=== PATIENT | male | born 1965 | race Caucasian/White ===

== ENCOUNTER → 2018-03-29 19:15 | Emergency (ER) | payer BC ==
[~2018-03-29 19:15] MED LIST: Metoclopramide TAB* 10 MG PO ONE; diPHENhydraMINE PO* 25 MG PO ONE
[2018-03-29 21:51] LABS: Hematocrit 45 % (42-52); Hemoglobin 15.3 g/dl (14.0-18.0); Mean Corpuscular HGB Conc 34 g/dl (31-36); Mean Corpuscular Hemoglobin 34 pg (27-31); Mean Corpuscular Volume 99 fL (80-94); Mean Platelet Volume 7.5 um3 (7.4-10.4); Platelet Count 112 10^3/ul (150-450); Red Blood Count 4.52 10^6/ul (4.00-5.40); Red Cell Distribution Width 15 % (10.5-15); White Blood Count 5.8 10^3/ul (3.5-10.8)
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
[2018-03-29 22:06] LABS: EGFR Non-African American 106.1 (>60)
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
[2018-03-29 22:43] LABS: ABS Basophils 0.1 10^3/ul (0-0.2); ABS Neutrophils 1.5 10^3/ul (1.5-7.7); ABS Neutrophils 1.6 10^3/ul (1.5-7.7); Monocytes % 6 % (0-7)
[2018-03-29 23:09] VITALS: BP 154/74
== END | disposition home or self-care (01) ==
LOC: ED 19:15
DX: F07.81 Postconcussional syndrome (principal); M54.2 Cervicalgia; Z88.0 Allergy status to penicillin
CPT/HCPCS: 36415; 70450; 80053; 85025; 99282; A9270-GY

== ENCOUNTER 2018-04-24 19:43 | Emergency (ER) | payer BC ==
[2018-04-24 20:56] LABS: ABS Basophils 0.1 10^3/ul (0-0.2); ABS Eosinophils 0.1 10^3/ul (0-0.6); ABS Lymphocytes 2.6 10^3/ul (1.0-4.8); ABS Monocytes 0.6 10^3/ul (0-0.8); ABS Neutrophils 2.1 10^3/ul (1.5-7.7); ABS Nucleated RBC 0 10^3/ul; Eosinophil % 2.5 %; Hematocrit 45 % (42-52); Hemoglobin 15.4 g/dl (14.0-18.0); Lymphocyte % 46.6 %; Mean Corpuscular HGB Conc 34 g/dl (31-36); Mean Corpuscular Hemoglobin 34 pg (27-31); Mean Corpuscular Volume 100 fL (80-94); Mean Platelet Volume 7.6 fL (7.4-10.4); Nucleated Red Blood Cells % 0.1; Platelet Count 272 10^3/ul (150-450); Red Blood Count 4.51 10^6/ul (4.00-5.40); Red Cell Distribution Width 15 % (10.5-15); White Blood Count 5.6 10^3/ul (3.5-10.8)
[2018-04-24 21:10] LABS: EGFR Non-African American 112.8 (>60)
--- NOTE | 2018-04-24 22:49 | ED ---
Substance Abuse/Use - HPI Summary HPI Summary: A 52 y/o male accompanied by his presents to the ED c/o alcohol intoxication s/p LOC. As per triage, "Patient was found on floor by this evening. reports increased confusion and weakness. also reports alcohol abuse and hx hypoglycemia". According to the , she came home and found the patient passed out on the floor. She denies any injury and did not see one. The patient admitted to drinking "a little" ETOH today. Patient has had similar episodes before. His noted that there were other periods where the patient gets confused and has trouble walking. - History Of Current Complaint Chief Complaint: EDAltMentalStatus Stated Complaint: CONFUSED/LOW SUGAR Time Seen by Provider: 04/24/18 22:19 Hx Obtained From: Patient Onset/Duration of Drug/ETOH Abuse: Hours Ingestion History: Type/Name Of Drug - ETOH, Amount Ingested - UNKNOWN Overdose Characteristics: Oral Timing Of Abuse: Binge Use Severity Currently: None Aggravating Factor(s): Nothing Alleviating Factor(s): Nothing Associated Signs And Symptoms: Negative - Allergies/Home Medications Allergies/Adverse Reactions: Allergies Allergy/AdvReac Type Severity Reaction Status Date / Time Penicillins Allergy Rash Verified 03/29/18 19:27 PMH/Surg Hx/FS Hx/Imm Hx Endocrine/Hematology History: Reports: Other Endocrine/Hematological Disorders - Hypoglycemia Cardiovascular History: Reports: Hx Hypertension Sensory History: Denies: Hx Deafness Neurological History: Reports: Other Neuro Impairments/Disorders - Concussion - Cancer History Cancer Type, Location and Year: None reported - Surgical History Surgery Procedure, Year, and Place: None reported Infectious Disease History: No Infectious Disease History: Denies: Traveled Outside the [place] in Last 30 Days - Family History Known Family History: Positive: Cardiac Disease - Social History Alcohol Use: Daily Alcohol Amount: States in treatment, but most recently drank today mornig Substance Use Type: Reports: None Hx Tobacco Use: No Smoking Status (MU): Never Smoked Tobacco Review of Systems Negative: Fever Neurological: Other - POSITIVE: LOC Positive: Weakness All Other Systems Reviewed And Are Negative: Yes Physical Exam - Summary Physical Exam Summary: Appearance: Well-appearing, Well-nourished, lying in bed comfortably Skin: Warm, dry, no obvious rash Eyes: sclera anicteric, no conjunctival pallor ENT: mucous membranes moist, pharynx appears normal Neck: Supple, nontender Respiratory: Clear to auscultation, no signs of respiratory distress Cardiovascular: Normal S1, S2. No murmurs. Normal distal pulses in tibial and radial bilaterally. Abdomen: Soft, nontender, normal active bowel sounds present Musculoskeletal: Normal, Strength/ROM Intact, Motor function in all 4 extremities is normal and symmetric. There is no rigidity or tremor noted. Neurological: A&Ox3, awake and alert, mentation is normal, speech is fluent and appropriate, Level of consciousness nml. The patient is alert and oriented. Cranial nerves are grossly intact. Gaze is conjugate and without nystagmus. Peripheral vision is intact to confrontation. There are no gross sensory abnormalities to light touch. There is no truncal or fine motor ataxia. Gait is normal. Psychiatric: affect is normal, does not appear anxious or depressed GCS: 15 Triage Information Reviewed: Yes Vital Signs On Initial Exam: Initial Vitals Temp Pulse Resp BP Pulse Ox 97.7 F 80 16 121/90 97 04/24/18 19:54 04/24/18 19:54 04/24/18 19:54 04/24/18 19:54 04/24/18 19:54 Vital Signs Reviewed: Yes Diagnostics - Vital Signs Vital Signs Temp Pulse Resp BP Pulse Ox 04/24/18 22:21 14 130/82 04/24/18 19:54 97.7 F 80 16 121/90 97 - Laboratory Lab Results: Lab Results 04/24/18 04/24/18 04/24/18 Range/Units 20:47 20:47 20:47 WBC 5.6 (3.5-10.8) 10^3/ul RBC 4.51 (4.00-5.40) 10^6/ul Hgb 15.4 (14.0-18.0) g/dl Hct 45 (42-52) % MCV 100 H (80-94) fL MCH 34 H (27-31) pg MCHC 34 (31-36) g/dl RDW 15 (10.5-15) % Plt Count 272 (150-450) 10^3/ul MPV 7.6 (7.4-10.4) fL Neut % (Auto) 38.3 % Lymph % (Auto) 46.6 % Scott % (Auto) 11.0 % Eos % (Auto) 2.5 % Baso % (Auto) 1.6 % Absolute Neuts (auto) 2.1 (1.5-7.7) 10^3/ul Absolute Lymphs (auto) 2.6 (1.0-4.8) 10^3/ul Absolute Monos (auto) 0.6 (0-0.8) 10^3/ul Absolute Eos (auto) 0.1 (0-0.6) 10^3/ul Absolute Basos (auto) 0.1 (0-0.2) 10^3/ul Absolute Nucleated RBC 0 10^3/ul Nucleated RBC % 0.1 Sodium 142 (135-145) mmol/L Potassium 4.6 (3.5-5.0) mmol/L Chloride 108 (101-111) mmol/L Carbon Dioxide 29 (22-32) mmol/L Anion Gap 5 (2-11) mmol/L BUN 8 (6-24) mg/dL Creatinine 0.73 (0.67-1.17) mg/dL Est GFR ( Amer) 136.5 (>60) Est GFR (Non-Af Amer) 112.8 (>60) BUN/Creatinine Ratio 11.0 (8-20) Glucose 122 H (70-100) mg/dL Lactic Acid 1.8 (0.5-2.0) mmol/L Calcium 9.1 (8.6-10.3) mg/dL Total Bilirubin 0.30 (0.2-1.0) mg/dL AST 73 H (13-39) U/L ALT 67 H (7-52) U/L Alkaline Phosphatase 49 (34-104) U/L Ammonia (16-53) mcmol/L Troponin I 0.00 (<0.04) ng/mL Total Protein 7.2 (6.4-8.9) g/dL Albumin 4.5 (3.2-5.2) g/dL Globulin 2.7 (2-4) g/dL Albumin/Globulin Ratio 1.7 (1-3) TSH 0.59 (0.34-5.60) mcIU/mL Serum Alcohol 373 H (<10) mg/dL 04/24/ Range/Units 20:47 WBC (3.5-10.8) 10^3/ul RBC (4.00-5.40) 10^6/ul Hgb (14.0-18.0) g/dl Hct (42-52) % MCV (80-94) fL MCH (27-31) pg MCHC (31-36) g/dl RDW (10.5-15) % Plt Count (150-450) 10^3/ul MPV (7.4-10.4) fL Neut % (Auto) % Lymph % (Auto) % Scott % (Auto) % Eos % (Auto) % Baso % (Auto) % Absolute Neuts (auto) (1.5-7.7) 10^3/ul Absolute Lymphs (auto) (1.0-4.8) 10^3/ul Absolute Monos (auto) (0-0.8) 10^3/ul Absolute Eos (auto) (0-0.6) 10^3/ul Absolute Basos (auto) (0-0.2) 10^3/ul Absolute Nucleated RBC 10^3/ul Nucleated RBC % Sodium (135-145) mmol/L Potassium (3.5-5.0) mmol/L Chloride (101-111) mmol/L Carbon Dioxide (22-32) mmol/L Anion Gap (2-11) mmol/L BUN (6-24) mg/dL Creatinine (0.67-1.17) mg/dL Est GFR ( Amer) (>60) Est GFR (Non-Af Amer) (>60) BUN/Creatinine Ratio (8-20) Glucose (70-100) mg/dL Lactic Acid (0.5-2.0) mmol/L Calcium (8.6-10.3) mg/dL Total Bilirubin (0.2-1.0) mg/dL AST (13-39) U/L ALT (7-52) U/L Alkaline Phosphatase (34-104) U/L Ammonia 37 (16-53) mcmol/L Troponin I (<0.04) ng/mL Total Protein (6.4-8.9) g/dL Albumin (3.2-5.2) g/dL Globulin (2-4) g/dL Albumin/Globulin Ratio (1-3) TSH (0.34-5.60) mcIU/mL Serum Alcohol (<10) mg/dL Result Diagrams: 04/24/18 20:47 04/24/18 20:47 Lab Statement: Any lab studies that have been ordered have been reviewed, and results considered in the medical decision making process. - CT BRAIN CT CT Interpretation Completed By: Radiologist - Normal noncontrast head CT. ED PHYSICIAN REVIEWED THIS RADIOLOGY REPORT. - EKG 2221 Cardiac Rate: NL - 68 BPM EKG Rhythm: Sinus Rhythm - 68 BPM Summary of EKG Findings: NSR at 68 BPM, P waves, QRS complex, and T waves are within normal limits, T waves and intervals are normal, no ischemic changes. This is a normal EKG Course/Dx - Course Course Of Treatment: A 52 y/o male accompanied by his presents to the ED c/ o alcohol intoxication s/p LOC. As per triage, "Patient was found on floor by this evening. reports increased confusion and weakness. also reports alcohol abuse and hx hypoglycemia". According to the , she came home and found the patient passed out on the floor. She denies any injury and did not see one. The patient admitted to drinking "a little" ETOH today. Patient has had similar episodes before. His noted that there were other periods where the patient gets confused and has trouble walking. Physical exam was unremarkable. An EKG revealed NSR at 68 BPM, P waves, QRS complex, and T waves are within normal limits, T waves and intervals are normal, no ischemic changes. This is a normal EKG. A Brain CT revealed normal noncontrast head CT. GCS: 15. Blood work was done. In the ED course, the patient recieved no medications. Patient will be discharged with a diagnosis of alcohol intoxication. Patient is to follow up with PCP and drug counseling. Patient is agreeable with this plan. - Diagnoses Provider Diagnoses: Alcohol intoxication Discharge - Sign-Out/Discharge Documenting (check all that apply): Patient Departure - DISCHARGE - Discharge Plan Condition: Good Disposition: HOME Patient Education Materials: Effects of Smoking, Alcohol, and Medicines on (ED), Alcohol Withdrawal (ED), Alcohol Dependence (ED) Referrals: Raghu Sinclair MD [Primary Care Provider] - Additional Instructions: Getting help with your alcohol problem is important, both for your health and relationships. If you have had problems like seizures or delirium when you try to stop drinking, you will probably be best off checking into a monitored detox program where you can be medicated to prevent severe withdrawal. YOU CANNOT SOLVE THIS PROBLEM BY YOURSELF, YOU WILL NEED HELP. I can't emphasize that enough. It is truly a life or issue. - Billing Disposition and Condition Condition: GOOD Disposition: Home - Attestation Statements Document Initiated by Derian: Yes Documenting Scribe: Ulysses Shelby Provider For Whom Derian is Documenting (Include Credential): Lazaro Ross MD Scribe Attestation: I, Ulysses Shelby, scribed for Lazaro Ross MD on 04/25/18 at 0222. Scribe Documentation Reviewed: Yes Provider Attestation: The documentation as recorded by the Ulysses kenney accurately reflects the service I personally performed and the decisions made by me, Lazaro Ross MD Status of Scrtaniyae Document: Viewed
[2018-04-24 23:30] VITALS: BP 124/82
== END 2018-04-24 23:34 | disposition home or self-care (01) ==
LOC: ED 19:43
DX: F10.129 Alcohol abuse with intoxication, unspecified (principal); Z88.0 Allergy status to penicillin
CPT/HCPCS: 36415; 70450; 80053; 80320; 82140; 83605; 84443; 84484; 85025; 93005; 99282; G0480

== ENCOUNTER 2018-08-20 10:11 | Inpatient (IN) | payer BC ==
[2018-08-20 11:28] LABS: Hematocrit 37 % (36-46); Hemoglobin 12.7 g/dL (14.0-18.0); Mean Corpuscular HGB Conc 34 g/dL (31-36); Mean Corpuscular Hemoglobin 35 pg (27-31); Mean Corpuscular Volume 102 fL (80-94); Red Blood Count 3.67 10^6 /uL (4.18-5.48); Red Cell Distribution Width 14 % (10.5-15); White Blood Count 5.1 10^3/uL (3.5-10.8)
[2018-08-20 11:33] LABS: INR 0.82 (0.77-1.02)
[2018-08-20 11:50] LABS: ALT 75 U/L (7-52); AST 82 U/L (13-39); Albumin 3.8 g/dL (3.2-5.2); Albumin/Globulin Ratio 1.7 (1-3); Alkaline Phosphatase 61 U/L (34-104); Anion Gap 7 mmol/L (2-11); BUN/Creatinine Ratio 8.6 (8-20); Blood Urea Nitrogen 6 mg/dL (6-24); CO2 Carbon Dioxide 26 mmol/L (22-32); Chloride 103 mmol/L (101-111); Creatine Kinase 96 U/L (10-223); EGFR African American 143.3 (>60); EGFR Non-African American 118.4 (>60); Globulin 2.2 g/dL (2-4); Glucose 114 mg/dL (70-100); Magnesium 1.5 mg/dL (1.9-2.7); Potassium 3.2 mmol/L (3.5-5.0); Sodium 136 mmol/L (135-145)
[2018-08-20 12:19] LABS: Acetaminophen < 15 mcg/mL; Alcohol < 10 mg/dL (<10); Salicylate < 2.50 mg/dL (<30)
[2018-08-20] MEDS ORDERED: Thiamine IV* 100 MG, Folic Acid IV* 1 MG, Multiple Vitamin IV ADULT* 10 ML in NS 0.9% 1... IV ONE (12:33)
[2018-08-20 12:35] LABS: ABS Basophils 0 10^3/ul (0-0.2); ABS Eosinophils 0.2 10^3/ul (0-0.6); ABS Lymphocytes 1.5 10^3/ul (1.0-4.8); ABS Monocytes 1.2 10^3/ul (0-0.8); ABS Neutrophils 2.2 10^3/ul (1.5-7.7); ABS Nucleated RBC 0 10^3/ul; Eosinophil % 3.7 %; Lymphocyte % 29.5 %; Mean Platelet Volume 8.8 fL (7.4-10.4); Nucleated Red Blood Cells % 0.1; Platelet Count 82 10^3/uL (150-450)
[2018-08-20 12:41] LABS: Urine Appearance Clear; Urine Bilirubin Negative (Negative); Urine Blood Negative (Negative); Urine Color Yellow; Urine Glucose Negative (Negative); Urine Ketones Negative (Negative); Urine Nitrite Negative (Negative); Urine Protein Negative (Negative); Urine Urobilinogen Negative (Negative)
[2018-08-20] MEDS ORDERED: Thiamine TAB* 100 MG TAB PO ONE (12:52)
[2018-08-20 12:56] LABS: Barbiturates Urine Screen None Detected (None Detect); Benzodiazepine Urine Screen None Detected (None Detect); Urine Cannabinoids Screen None Detected (None Detect)
--- NOTE | 2018-08-20 13:41 | ED ---
Altered Mental Status - HPI Summary HPI Summary: Patient's a 52-year-old male presented to the ED with altered mental status. is at bedside. states over the past 2 weeks, he has been worsening with his altered mental status. He is a heavy drinker and an alcoholic. Patient states he only drank 1 drink last night and then this morning again had some champagne. His states he drinks several drinks last night, but did not not have champagne this morning. Patient states he was at a democrat last night, however the states again this is untrue. He has been hallucinating and stating there are people in the house which are not there. He is also stating he needs to call the police, but is unsure why. When asked the patient , the patient states he is here because he has some left eye redness and offers nothing else. He has been seen in the past for altered mental status and CT brain obtained upon his last 2 visits. He also does have a diagnosis of a remote concussion and has also been treated for postconcussive syndrome. - History Of Current Complaint Chief Complaint: EDAltMentalStatus Stated Complaint: HALLUCINATIONS PER Time Seen by Provider: 08/20/18 10:17 Hx Obtained From: Patient Timing: Constant Severity Initially: Moderate Severity Currently: Moderate Character: Confusion, Lethargy Aggravating Factor(s): Other - alcohol abuse Alleviating Factor(s): Nothing - Allergies/Home Medications Allergies/Adverse Reactions: Allergies Allergy/AdvReac Type Severity Reaction Status Date / Time Penicillins Allergy Rash Verified 08/20/18 10:53 Home Medications: Home Medications Atenolol 50 mg PO DAILY 08/20/18 [History Confirmed 08/20/18] PMH/Surg Hx/FS Hx/Imm Hx Previously Healthy: Yes Endocrine/Hematology History: Reports: Other Endocrine/Hematological Disorders - Hypoglycemia Cardiovascular History: Reports: Hx Hypertension Sensory History: Denies: Hx Deafness Neurological History: Reports: Other Neuro Impairments/Disorders - Concussion - Cancer History Cancer Type, Location and Year: None reported - Surgical History Surgery Procedure, Year, and Place: None reported - Immunization History Hx Pertussis Vaccination: No Immunizations Up to Date: Yes Infectious Disease History: No Infectious Disease History: Denies: Traveled Outside the [place] in Last 30 Days - Family History Known Family History: Positive: Cardiac Disease - Social History Occupation: Unemployed, Disabled Lives: With Family Alcohol Use: Daily Alcohol Amount: daily Hx Substance Use: No Substance Use Type: Reports: None Hx Tobacco Use: No Smoking Status (MU): Never Smoked Tobacco Review of Systems Negative: Fever, Chills, Fatigue Negative: Palpitations, Chest Pain Negative: Shortness Of Breath, Cough Genitourinary: Negative Positive: no symptoms reported, see HPI Negative: Arthralgia, Myalgia Positive: Slurred Speech All Other Systems Reviewed And Are Negative: Yes Physical Exam Triage Information Reviewed: Yes Vital Signs On Initial Exam: Initial Vitals Temp Pulse Resp BP Pulse Ox 97.2 F 77 18 149/97 98 08/20/18 10:22 08/20/18 10:22 08/20/18 10:22 08/20/18 10:22 08/20/18 10:22 Completion Of Physical Exam Limited Due To: Altered Mental Status Appearance: Positive: Ill-Appearing Skin: Positive: Skin Color Reflects Adequate Perfusion Head/Face: Positive: Normal Head/Face Inspection Eyes: Positive: EOMI, Conjunctiva Clear Neck: Positive: No Lymphadenopathy Respiratory/Lung Sounds: Positive: Clear to Auscultation, Breath Sounds Present Cardiovascular: Positive: RRR Musculoskeletal: Positive: Strength/ROM Intact Neurological: Positive: Slurred Speech Psychiatric: Positive: Affect/Mood Appropriate Diagnostics - Vital Signs Vital Signs Temp Pulse Resp BP Pulse Ox 08/20/18 13:00 66 17 100 08/20/18 12:30 82 14 141/111 100 08/20/18 12:00 65 17 97 08/20/18 11:56 65 14 112/77 98 08/20/18 11:52 65 17 114/79 97 08/20/18 11:27 69 116/81 97 08/20/18 11:26 71 97 08/20/18 10:22 97.2 F 77 18 149/97 98 - Laboratory Lab Results: Lab Results 08/20/18 08/20/18 08/20/18 Range/Units 11:19 11:19 11:19 WBC 5.1 (3.5-10.8) 10^3/uL RBC 3.67 L (4.18-5.48) 10^6 /uL Hgb 12.7 L (14.0-18.0) g/dL Hct 37 (36-46) % MCV 102 H (80-94) fL MCH 35 H (27-31) pg MCHC 34 (31-36) g/dL RDW 14 (10.5-15) % Plt Count 82 L (150-450) 10^3/uL MPV 8.8 (7.4-10.4) fL Neut % (Auto) 41.9 % Lymph % (Auto) 29.5 % [place] % (Auto) 24.2 % Eos % (Auto) 3.7 % Baso % (Auto) 0.7 % Absolute Neuts (auto) 2.2 (1.5-7.7) 10^3/ul Absolute Lymphs (auto) 1.5 (1.0-4.8) 10^3/ul Absolute Monos (auto) 1.2 H (0-0.8) 10^3/ul Absolute Eos (auto) 0.2 (0-0.6) 10^3/ul Absolute Basos (auto) 0 (0-0.2) 10^3/ul Absolute Nucleated RBC 0 10^3/ul Nucleated RBC % 0.1 Hem Pathologist Commnt Pending INR (Anticoag Therapy) (0.77-1.02) Sodium 136 (135-145) mmol/L Potassium 3.2 L (3.5-5.0) mmol/L Chloride 103 (101-111) mmol/L Carbon Dioxide 26 (22-32) mmol/L Anion Gap 7 (2-11) mmol/L BUN 6 (6-24) mg/dL Creatinine 0.70 (0.67-1.17) mg/dL Est GFR ( Amer) 143.3 (>60) Est GFR (Non-Af Amer) 118.4 (>60) BUN/Creatinine Ratio 8.6 (8-20) Glucose 114 H (70-100) mg/dL Lactic Acid (0.5-2.0) mmol/L Calcium 9.0 (8.6-10.3) mg/dL Magnesium 1.5 L (1.9-2.7) mg/dL Total Bilirubin 1.00 (0.2-1.0) mg/dL AST 82 H (13-39) U/L ALT 75 H (7-52) U/L Alkaline Phosphatase 61 (34-104) U/L Ammonia 46 (16-53) mcmol/L Total Creatine Kinase 96 (10-223) U/L Troponin I 0.00 (<0.04) ng/mL Total Protein 6.0 L (6.4-8.9) g/dL Albumin 3.8 (3.2-5.2) g/dL Globulin 2.2 (2-4) g/dL Albumin/Globulin Ratio 1.7 (1-3) Folate Pending Urine Color Urine Appearance Urine pH (5-9) Ur Specific [place] (1.010-1.030) Urine Protein (Negative) Urine Ketones (Negative) Urine Blood (Negative) Urine Nitrate (Negative) Urine Bilirubin (Negative) Urine Urobilinogen (Negative) Ur Leukocyte Esterase (Negative) Urine Glucose (Negative) Salicylates < 2.50 (<30) mg/dL Urine Opiates Screen (None Detect) Acetaminophen < 15 mcg/mL Ur Barbiturates Screen (None Detect) Ur Phencyclidine Scrn (None Detect) Ur Amphetamines Screen (None Detect) U Benzodiazepines Scrn (None Detect) Urine Cocaine Screen (None Detect) U Cannabinoids Screen (None Detect) Serum Alcohol < 10 (<10) mg/dL 08/20/18 08/20/18 08/20/18 Range/Units 11:19 11:19 12:29 WBC (3.5-10.8) 10^3/uL RBC (4.18-5.48) 10^6 /uL Hgb (14.0-18.0) g/dL Hct (36-46) % MCV (80-94) fL MCH (27-31) pg MCHC (31-36) g/dL RDW (10.5-15) % Plt Count (150-450) 10^3/uL MPV (7.4-10.4) fL Neut % (Auto) % Lymph % (Auto) % [place] % (Auto) % Eos % (Auto) % Baso % (Auto) % Absolute Neuts (auto) (1.5-7.7) 10^3/ul Absolute Lymphs (auto) (1.0-4.8) 10^3/ul Absolute Monos (auto) (0-0.8) 10^3/ul Absolute Eos (auto) (0-0.6) 10^3/ul Absolute Basos (auto) (0-0.2) 10^3/ul Absolute Nucleated RBC 10^3/ul Nucleated RBC % Hem Pathologist Commnt INR (Anticoag Therapy) 0.82 (0.77-1.02) Sodium (135-145) mmol/L Potassium (3.5-5.0) mmol/L Chloride (101-111) mmol/L Carbon Dioxide (22-32) mmol/L Anion Gap (2-11) mmol/L BUN (6-24) mg/dL Creatinine (0.67-1.17) mg/dL Est GFR ( Amer) (>60) Est GFR (Non-Af Amer) (>60) BUN/Creatinine Ratio (8-20) Glucose (70-100) mg/dL Lactic Acid 0.9 (0.5-2.0) mmol/L Calcium (8.6-10.3) mg/dL Magnesium (1.9-2.7) mg/dL Total Bilirubin (0.2-1.0) mg/dL AST (13-39) U/L ALT (7-52) U/L Alkaline Phosphatase (34-104) U/L Ammonia (16-53) mcmol/L Total Creatine Kinase (10-223) U/L Troponin I (<0.04) ng/mL Total Protein (6.4-8.9) g/dL Albumin (3.2-5.2) g/dL Globulin (2-4) g/dL Albumin/Globulin Ratio (1-3) Folate Urine Color Yellow Urine Appearance Clear Urine pH 7.0 (5-9) Ur Specific [place] 1.010 (1.010-1.030) Urine Protein Negative (Negative) Urine Ketones Negative (Negative) Urine Blood Negative (Negative) Urine Nitrate Negative (Negative) Urine Bilirubin Negative (Negative) Urine Urobilinogen Negative (Negative) Ur Leukocyte Esterase Negative (Negative) Urine Glucose Negative (Negative) Salicylates (<30) mg/dL Urine Opiates Screen (None Detect) Acetaminophen mcg/mL Ur Barbiturates Screen (None Detect) Ur Phencyclidine Scrn (None Detect) Ur Amphetamines Screen (None Detect) U Benzodiazepines Scrn (None Detect) Urine Cocaine Screen (None Detect) U Cannabinoids Screen (None Detect) Serum Alcohol (<10) mg/dL 08/20/18 Range/Units 12:29 WBC (3.5-10.8) 10^3/uL RBC (4.18-5.48) 10^6 /uL Hgb (14.0-18.0) g/dL Hct (36-46) % MCV (80-94) fL MCH (27-31) pg MCHC (31-36) g/dL RDW (10.5-15) % Plt Count (150-450) 10^3/uL MPV (7.4-10.4) fL Neut % (Auto) % Lymph % (Auto) % [place] % (Auto) % Eos % (Auto) % Baso % (Auto) % Absolute Neuts (auto) (1.5-7.7) 10^3/ul Absolute Lymphs (auto) (1.0-4.8) 10^3/ul Absolute Monos (auto) (0-0.8) 10^3/ul Absolute Eos (auto) (0-0.6) 10^3/ul Absolute Basos (auto) (0-0.2) 10^3/ul Absolute Nucleated RBC 10^3/ul Nucleated RBC % Hem Pathologist Commnt INR (Anticoag Therapy) (0.77-1.02) Sodium (135-145) mmol/L Potassium (3.5-5.0) mmol/L Chloride (101-111) mmol/L Carbon Dioxide (22-32) mmol/L Anion Gap (2-11) mmol/L BUN (6-24) mg/dL Creatinine (0.67-1.17) mg/dL Est GFR ( Amer) (>60) Est GFR (Non-Af Amer) (>60) BUN/Creatinine Ratio (8-20) Glucose (70-100) mg/dL Lactic Acid (0.5-2.0) mmol/L Calcium (8.6-10.3) mg/dL Magnesium (1.9-2.7) mg/dL Total Bilirubin (0.2-1.0) mg/dL AST (13-39) U/L ALT (7-52) U/L Alkaline Phosphatase (34-104) U/L Ammonia (16-53) mcmol/L Total Creatine Kinase (10-223) U/L Troponin I (<0.04) ng/mL Total Protein (6.4-8.9) g/dL Albumin (3.2-5.2) g/dL Globulin (2-4) g/dL Albumin/Globulin Ratio (1-3) Folate Urine Color Urine Appearance Urine pH (5-9) Ur Specific [place] (1.010-1.030) Urine Protein (Negative) Urine Ketones (Negative) Urine Blood (Negative) Urine Nitrate (Negative) Urine Bilirubin (Negative) Urine Urobilinogen (Negative) Ur Leukocyte Esterase (Negative) Urine Glucose (Negative) Salicylates (<30) mg/dL Urine Opiates Screen None detected (None Detect) Acetaminophen mcg/mL Ur Barbiturates Screen None detected (None Detect) Ur Phencyclidine Scrn None detected (None Detect) Ur Amphetamines Screen None detected (None Detect) U Benzodiazepines Scrn None detected (None Detect) Urine Cocaine Screen None detected (None Detect) U Cannabinoids Screen None detected (None Detect) Serum Alcohol (<10) mg/dL Result Diagrams: 08/20/18 11:19 08/20/18 11:19 Lab Statement: Any lab studies that have been ordered have been reviewed, and results considered in the medical decision making process. Altered Mental Statu Course/Dx - Course Course Of Treatment: The patient is evaluated for altered mental status. Labs obtained which are all WNL except for a slightly elevated AST and ALT. He is given 1 banana bag with oral thiamine as IV was not available. is concerned and states she is unable to care for him due to his condition. She is also concerned for withdrawals as he has had withdrawal symptoms in the past. Discussed case with Dr. toth, hospitalist who agrees to admit for altered mental status. CT brain obtained which shows suggestion of interval progression of cerebral and cerebellar atrophy compared with April 24, 2018 exam. - Diagnoses Provider Diagnoses: Alcohol abuse, Hallucination, Cerebral atrophy - Provider Notifications Discussed Care Of Patient With: Sahara Pan Instructed by Provider To: Admit As Inpatient Discharge - Sign-Out/Discharge Documenting (check all that apply): Patient Departure Patient Received Moderate/Deep Sedation with Procedure: No - Discharge Plan Condition: Fair Disposition: ADMITTED TO [facility] Referrals: Raghu Sinclair MD [Primary Care Provider] - - Billing Disposition and Condition Condition: FAIR Disposition: Admitted to [facility]
[2018-08-20] MEDS ORDERED: Folic Acid IV* 1 MG, Multiple Vitamin IV ADULT* 10 ML in NS 0.9% 1000 ML** 1,000 ML IV ONE ×4 (14:00)
[2018-08-20 14:03] LABS: Folate > 20.00 ng/mL (>3.99)
[2018-08-20] MEDS ORDERED: Magnesium Hydroxide LIQ* 30 ML UDC PO PRN (14:38)
[2018-08-20] MEDS ORDERED: Al Hydrox/Mg Hydrox/Simet LIQ* 30 ML UDC PO PRN (14:38)
[2018-08-20] MEDS ORDERED: Acetaminophen TAB* 325 MG PO PRN ×2 (14:43→14:56)
[2018-08-20] MEDS ORDERED: Thiamine IV* 100 MG/ML 2 ML VIAL IM ONE (14:56)
[2018-08-20] MEDS ORDERED: Folic Acid TAB* 1 MG PO SCH (15:00)
[2018-08-20] MEDS ORDERED: Thiamine IV* 500 MG in NS 0.9% 250 ML* 250 ML IV ONE (15:16)
[2018-08-20] MEDS: LORazepam TAB(*) 1 MG PO SCH ×2 (16:13→22:45)
[2018-08-20] MEDS: Multivitamins/Minerals TAB PO SCH (17:25)
[2018-08-20] MEDS: KCL 20 MEQ/100 ML IVPREMIX* 20 MEQ/100 ML BAG IV SCH ×3 (17:25→22:03)
--- NOTE | 2018-08-20 17:30 | HP ---
HISTORY AND PHYSICAL: ADDENDUM: EMERGENCY DEPARTMENT COURSE: The patient arrived to the emergency department with vital signs of temperature 97.2, pulse 77, respiratory rate 18, O2 sat 98% on room air, blood pressure 149/97, which was later recorded at 116/81. In the emergency department, the patient received thiamine 100 mg, folic acid 1 mg, multivitamin 10 mL in normal saline. Therefore, the hospitalists were asked to evaluate the patient for admission. MARCY EASLEY [id number]/[facility] #: [id number]
--- NOTE | 2018-08-20 17:30 | HP ---
CC: Dr. Sinclair * HISTORY AND PHYSICAL: DATE OF ADMISSION: 08/20/18 PRIMARY CARE PROVIDER: Dr. Sinclair. ATTENDING PHYSICIAN: Dr. Sahara Pan * (dictated by MARCY Grijalva). CHIEF COMPLAINT: The patient reports back pain. His reports hallucinations. HISTORY OF PRESENT ILLNESS: Darren Metcalf is a 52-year-old white male with past medical history of alcohol use disorder and hypertension, who presents to the ED at direction of his PCP for hallucinations x approximately 2 days. The patient's noticed the patient began hallucinating yesterday evening when he was complaining about people being in their house. He also was hallucinating that there was a hole bitten out of their couch cushion. His explains that she noticed that his concept of time was poor overnight as well. He was awake at 3 a.m. very concerned about the timing of their Crock- Pot because he thought it was 7 a.m. The patient's called their primary care provider, who directed them to the emergency department. The patient is not a reliable historian and his provides much of the history. The patient reports that he drank about 5 to 6 beers and a glass of champagne yesterday, but in the same sentence he reports that he drank the champagne at a wedding alliance party. His states he was not at a wedding alliance party yesterday. He is therefore unsure when his last drink was. He drinks approximately 2 to 3 beers a day at suggestion of his healthcare provider. His reports though that she will occasionally find handles of whiskey drunken in 1 day. He frequently hides how much alcohol he has been drinking. The patient is unsure if he has hallucinated with alcohol withdrawal in the past. He does have a history of withdrawal seizure last year at [facility]. He denies any changes in his mood lately. He does admit that he has not been sleeping much in the last 3 to 4 days. He has gotten "2 hours here and there" of sleep. He reports this is because he is worried about losing his job. His does not believe that he has had a particular increase in energy, though she has noticed the lack of sleep. The patient has had slowly worsening tremors and shuffling gait for the last 6 months. The does not think it has gotten worse in the last 2 to 3 weeks. He has not had abdominal pain, nausea, vomiting, diarrhea, chest pain, shortness of breath. The patient states that he fell last week and the week prior. His does not believe that he had had any loss of consciousness or head trauma. His reports that he does fall frequently when drunk. He was intoxicated at the time of these falls in the last 2 weeks. His gait and tremors have not worsened since these falls. Additionally, the patient denies visual changes, headaches, fevers, and chills. His back pain started about 3 or 4 days after his fall approximately a week ago. The patient denies focal weakness or sensory loss. EMERGENCY DEPARTMENT COURSE: The patient arrived to the emergency department with vital signs of temperature 97.2, pulse 77, respiratory rate 18, O2 sat 98% on room air, blood pressure 149/97, which was later recorded at 116/81. In the emergency department, the patient received thiamine 100 mg, folic acid 1 mg, multivitamin 10 mL in normal saline. Therefore, the hospitalists were asked to evaluate the patient for admission. PAST MEDICAL HISTORY: 1. Hypertension. 2. Alcohol use disorder. PAST SURGICAL HISTORY: Surgery at 6 weeks old for pyloric stenosis. HOME MEDICATIONS: Atenolol 50 mg p.o. daily. ALLERGIES: PENICILLIN (rash). FAMILY HISTORY: Father is living at age 72, has history of MD, hypertension and alcohol use disorder. Mother is alive at age 71 without history of coronary artery disease, stroke, or diabetes. Brother living at age 51 with alcohol use disorder. 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 He lives with his and one of his children. He and his have 3 children together. His is his surrogate medical decision maker. Her number is . REVIEW OF SYSTEMS: An 11-point review of systems was completed and all pertinent positives and negatives are in the HPI. All other systems are negative. PHYSICAL EXAMINATION GENERAL: The patient is a middle-aged male, sitting upright comfortably in hospital stretcher, appearing in no acute distress. is at bedside. HEENT: Head appears atraumatic and normocephalic. Eyes: Sclerae anicteric. PERRL. No nystagmus observed. Visual hinds are intact. ENT: Mucous membranes are moist. NECK: No tenderness to palpation of the cervical spinous processes. Range of motion is within normal limits. Neck is supple. RESPIRATORY: Lungs are clear to auscultation. CARDIO: Regular rate and rhythm without murmurs, rubs, or gallops. No edema. ABDOMEN: Abdomen is soft, nontender, and nondistended. There is no hepatosplenomegaly. There are no masses. Approximately 8 cm scar under right sternal border to right lateral abdomen. Liver span is approximately 6 cm. EXTREMITIES: No calf tenderness bilaterally. No edema or clubbing. MUSCULOSKELETAL: ROM of spine and neck are wnl. No tenderness to palpation of lumbar, thoracic, or cervical spinous processes. No tenderness to palpation of paraspinal muscles. NEURO: Sensation is intact throughout. Strength is 5/5 in all extremities. There is no ataxia. Cranial nerves II through XII are grossly intact. The patient's gait is slow and unsteady. The patient is unable to walk heel-toe. The patient is unable to walk on his toes. The patient walks on heels very unsteadily. The patient is able to squat but requires much support. The patient has resting tremor of bilateral upper extremities. Negative Romberg sign. PSYCH: The patient's mood and affect are euthymic. The patient is pleasant and cooperative. Does not appear to be responding to internal stimuli. DIAGNOSTIC STUDIES/LAB DATA: Brain CT today, impression: "Suggestion of interval progression of cerebral and cerebellar atrophy compared to the study on 04/24/18." White blood cell 5.1, hemoglobin 12.7, hematocrit 37, MCV 102, MCH 35, platelet count 82. Sodium 136, potassium 3.2, chloride 103, carbon dioxide 26, BUN 6, creatinine 0.7, glucose 114. Magnesium 1.5. AST 82, ALT 75, alk phos 61. Ammonia 46. Folate over 20. Serum alcohol less than 10. UDS negative. ASSESSMENT AND PLAN: Darren Metcalf is a 52-year-old male with past medical history of hypertension and alcohol use disorder with history of withdrawal seizure, who presents to the emergency department with reports of hallucinations x2 days. The patient will be admitted in observation for: 1. Altered mental status. The most likely explanation is alcohol withdrawal. The differential diagnosis is broad. Given the patient's history of alcohol use disorder, the differential must include hepatic encephalopathy, Wernicke encephalopathy, Korsakoff syndrome, delirium tremens, vitamin B12 deficiency and folate deficiency. Given the patient's lack of sleep, differential must also include insomnia-induced psychosis versus rox. Differentials can also include lumbar spinal cord injury and early onset dementia. Given that the patient's folate is within normal limits, folate deficiency has been ruled out. Ammonia is within normal limits as well; therefore, hepatic encephalopathy has been ruled out. The patient has been started on 500 mg of IV thiamine to cover for Wernicke encephalopathy. Given the patient's history of withdrawal seizures, a scheduled dose of 2 mg p.o. q.8 hours Ativan has been ordered. WAM protocol has been initiated. In addition, ordered TSH and B12 level. Dr. Shipley has been consulted as well as Physical Therapy. The patient will be given oral multivitamin and oral folic acid. Considering that the patient's strength in his bilateral lower extremities is within normal limits, a lumbar spinal cord injury is low on the differential despite the patient's back pain and recent falls. 2. Hypokalemia. The patient arrived in the emergency department with potassium of 3.2. Likely a consequence of poor nutrition due to alcohol consumption. The patient has not been vomiting. We will replete potassium during his stay. 3. Hypertension. The patient has past medical history of hypertension. We will continue his home atenolol and continue to monitor blood pressure. 4. FEN: Normal diet. The patient is hypokalemic as per above and we will replete with 20 mEq of potassium chloride IV x3. 5. DVT prophylaxis: The patient has a DVT risk of 1. He will be ambulating with assistance 4 times a day. 6. Code status: The patient is a full code. TIME SPENT: Approximately 55 minutes have been spent on this admission, approximately half at bedside. This case has been reviewed by my attending, Dr. Sahara Pan, and she agrees with this plan of care. MARCY GRIJALVA [id number]/[facility] #: [id number]/[facility] #: [id number]
[2018-08-20 17:42] LABS: Myoglobin 39.2 ng/mL (17.4-105.7)
[2018-08-20] MEDS: Thiamine TAB* 100 MG TAB PO SCH (18:11)
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
[2018-08-20] MEDS: LORazepam INJ* 2 MG/ML 1 ML VIAL IV PUSH SCH (20:02)
[2018-08-21] MEDS: LORazepam INJ* 2 MG/ML 1 ML VIAL IV PUSH SCH ×2 (00:13→02:30)
[2018-08-21 05:53] LABS: ABS Basophils 0 10^3/ul (0-0.2); ABS Eosinophils 0.2 10^3/ul (0-0.6); ABS Lymphocytes 1.5 10^3/ul (1.0-4.8); ABS Monocytes 1.1 10^3/ul (0-0.8); ABS Neutrophils 1.4 10^3/ul (1.5-7.7); ABS Nucleated RBC 0 10^3/ul; Eosinophil % 5.7 %; Hematocrit 39 % (36-46); Lymphocyte % 34.3 %; Mean Corpuscular HGB Conc 34 g/dL (31-36); Mean Corpuscular Hemoglobin 35 pg (27-31); Mean Corpuscular Volume 103 fL (80-94); Mean Platelet Volume 8.9 fL (7.4-10.4); Nucleated Red Blood Cells % 0.1; Platelet Count 86 10^3/uL (150-450); Red Blood Count 3.78 10^6 /uL (4.18-5.48); Red Cell Distribution Width 14 % (10.5-15); White Blood Count 4.2 10^3/uL (3.5-10.8)
[2018-08-21 06:13] LABS: Albumin 3.6 g/dL (3.2-5.2); Albumin/Globulin Ratio 1.7 (1-3); BUN/Creatinine Ratio 8.5 (8-20); Calcium 8.7 mg/dL (8.6-10.3); EGFR African American 174.5 (>60); EGFR Non-African American 144.3 (>60); Globulin 2.1 g/dL (2-4); Potassium 3.8 mmol/L (3.5-5.0); Total Protein 5.7 g/dL (6.4-8.9)
[2018-08-21 06:28] LABS: TSH (Thyroid Stimulating Horm) 2.04 mcIU/mL (0.34-5.60)
[2018-08-21] MEDS: Atenolol TAB* 50 MG PO SCH (07:30)
[2018-08-21] MEDS: Thiamine TAB* 100 MG TAB PO SCH (07:30)
[2018-08-21] MEDS: Multivitamins/Minerals TAB PO SCH (07:30)
[2018-08-21] MEDS: LORazepam TAB(*) 1 MG PO SCH ×2 (07:30→19:32)
[2018-08-21] MEDS: Folic Acid TAB* 1 MG PO SCH (07:30)
--- NOTE | 2018-08-21 08:12 | PN ---
Subjective Date of Service: 08/21/18 Length of Stay: 1 Days Neurology is following for the evaluation of tremors, gait instability, possible EtOH w/d Interval History: I reviewed nurses notes, spoke with is nurse this morning, no major events overnight although he did have some hallucinations yesterday and was trying to get out of bed repeatedly but reorientable. No agitation reported. He denies any pain, seems less confused this am. Denies any headache, muscle aches or pains, palpitations. He notes that one of the reasons he came to the hospital was for his left eye redness which persists. He denies any current hallucinations. No seizure activity reported overnight and vitals appear stable. Family History: Unchanged from Admission Social History: Unchanged from Admission Past Medical History: Unchanged from Admission Objective Active Medications: Acetaminophen (Tylenol Tab*) 650 mg PO Q4H PRN PRN Reason: PAIN Al Hydrox/Mg Hydrox/Simethicone (Maalox Plus*) 30 ml PO Q6H PRN PRN Reason: INDIGESTION Atenolol (Tenormin Tab*) 50 mg PO DAILY [facility] Last Admin: 08/21/18 07:30 Dose: 50 mg Folic Acid (Folvite Tab*) 1 mg PO DAILY [facility] Last Admin: 08/21/18 07:30 Dose: 1 mg Lorazepam (Ativan Inj*) 0 - 3 mg IV PUSH .PER [facility] PROTOCOL [facility]; Protocol Last Admin: 08/21/18 02:30 Dose: 2 mg Lorazepam (Ativan Tab(*)) 2 mg PO Q12H [facility]; Taper Stop: 08/23/18 10:59 Last Admin: 08/21/18 07:30 Dose: 2 mg Magnesium Hydroxide (Milk Of Magnesia Liq*) 30 ml PO Q4H PRN PRN Reason: CONSTIPATION Multivitamins/Minerals (Theragran/Minerals Tab*) 1 tab PO DAILY [facility] Last Admin: 08/21/18 07:30 Dose: 1 tab Thiamine HCl (Vitamin B-1 Tab*) 100 mg PO DAILY [facility] Last Admin: 08/21/18 07:30 Dose: 100 mg Vital Signs 08/20/18 08/20/18 08/20/18 10:22 11:26 11:27 Temperature 97.2 F Pulse Rate 77 71 69 Respiratory 18 Rate Blood Pressure 149/97 116/81 (mmHg) O2 Sat by Pulse 98 97 97 Oximetry 08/20/18 08/20/18 08/20/18 11:52 11:56 12:00 Temperature Pulse Rate 65 65 65 Respiratory 17 14 17 Rate Blood Pressure 114/79 112/77 (mmHg) O2 Sat by Pulse 97 98 97 Oximetry 08/20/18 08/20/18 08/20/18 12:30 13:00 13:23 Temperature Pulse Rate 82 66 69 Respiratory 14 17 12 Rate Blood Pressure 141/111 127/84 (mmHg) O2 Sat by Pulse 100 100 99 Oximetry 08/20/18 08/20/18 08/20/18 13:53 14:00 14:53 Temperature Pulse Rate 74 73 72 Respiratory 16 16 14 Rate Blood Pressure 113/80 95/76 (mmHg) O2 Sat by Pulse 98 100 98 Oximetry 08/20/18 08/20/18 08/20/18 15:00 16:13 16:50 Temperature 98.2 F Pulse Rate 70 68 Respiratory 21 16 19 Rate Blood Pressure 116/76 (mmHg) O2 Sat by Pulse 99 97 Oximetry 08/20/18 08/20/18 08/20/18 17:15 17:43 18:00 Temperature 98.2 F 98.5 F Pulse Rate 72 73 Respiratory 20 16 16 Rate Blood Pressure 120/75 101/58 (mmHg) O2 Sat by Pulse 99 97 Oximetry 08/20/18 08/20/18 08/20/18 19:47 20:02 21:31 Temperature 98.0 F Pulse Rate 79 Respiratory 20 20 18 Rate Blood Pressure 105/70 (mmHg) O2 Sat by Pulse 99 Oximetry 08/20/18 08/20/18 08/21/18 22:45 23:13 00:02 Temperature 98.2 F 97.6 F Pulse Rate 70 68 Respiratory 18 16 16 Rate Blood Pressure 117/86 155/91 (mmHg) O2 Sat by Pulse 98 98 Oximetry 08/21/18 08/21/18 08/21/18 00:13 01:21 01:32 Temperature Pulse Rate Respiratory 18 18 18 Rate Blood Pressure (mmHg) O2 Sat by Pulse Oximetry 08/21/18 08/21/18 08/21/18 02:30 04:21 04:33 Temperature 97.0 F Pulse Rate 63 Respiratory 18 18 16 Rate Blood Pressure 127/85 (mmHg) O2 Sat by Pulse 100 Oximetry 08/21/18 08/21/18 06:14 07:30 Temperature Pulse Rate 59 Respiratory 18 18 Rate Blood Pressure 140/83 (mmHg) O2 Sat by Pulse 100 Oximetry Intake and Output Last 24 Hours 08/19/18 08/20/18 08/21/18 08/22/18 06:59 06:59 06:59 06:59 Intake Total 0 Balance 0 Weight 155 lb Intake: Oral 0 Oxygen Devices in Use Now: None Neurology Exam: General: Well nourished, well developed, no acute distress HEENT: Normocephalic/atraumatic, sclera anicteric, redness and crusting of the left eye Neck: Supple Chest: Clear to auscultation bilaterally Cardiovascular: Regular rate and rhythm without murmurs, rubs, gallops Abdomen: Soft, non-tender/non-distended Extremities: No clubbing, cyanosis, or edema Rash noted over the chest and neck, fine, maculopapular Neurological Findings: Sleeping but awakens, oriented to person, [facility], 2018, July, thought it was (actually ) and thought it was Monday ( actually Monday). Remains somewhat confused on why he is here. Speech: fluent without dysarthria Cranial Nerve: PERRL, EOM intact, VFF, no nystagmus, some drooping of his left eyelid with swelling otherwise face symmetric bilaterally, facial sensation intact, hearing intact to finger rub bilaterally, palate elevates symmetrically , tongue midline Motor: Good resistance throughout with normal tone. No muscle aches or pains, no noted abnormal movements. Some difficulty arising from the seated to standing position, slow Sensation: Subjective tingling in the feet, intermittent, loss of vibration in the toes. Deep Tendon Reflex: 2+ symmetric in the upper/lower extremities, Babinski - down going He has some resting tremulousness. Has significant intention tremor-end point with some past-pointing. Has difficulty with heel to [place] bilaterally. Gait: 2 person assist to get out of bed. Wide based with some steppage, very unsteady Result Diagrams: 08/21/18 05:26 08/21/18 05:26 Additional Lab and Data: Lab Results 08/20/18 08/20/18 08/20/18 Range/Units 11:19 11:19 11:19 WBC 5.1 (3.5-10.8) 10^3/uL RBC 3.67 L (4.18-5.48) 10^6 /uL Hgb 12.7 L (14.0-18.0) g/dL Hct 37 (36-46) % MCV 102 H (80-94) fL MCH 35 H (27-31) pg MCHC 34 (31-36) g/dL RDW 14 (10.5-15) % Plt Count 82 L (150-450) 10^3/uL MPV 8.8 (7.4-10.4) fL Neut % (Auto) 41.9 % Lymph % (Auto) 29.5 % [place] % (Auto) 24.2 % Eos % (Auto) 3.7 % Baso % (Auto) 0.7 % Absolute Neuts (auto) 2.2 (1.5-7.7) 10^3/ul Absolute Lymphs (auto) 1.5 (1.0-4.8) 10^3/ul Absolute Monos (auto) 1.2 H (0-0.8) 10^3/ul Absolute Eos (auto) 0.2 (0-0.6) 10^3/ul Absolute Basos (auto) 0 (0-0.2) 10^3/ul Absolute Nucleated RBC 0 10^3/ul Nucleated RBC % 0.1 Hem Pathologist Commnt Pending INR (Anticoag Therapy) (0.77-1.02) Sodium 136 (135-145) mmol/L Potassium 3.2 L (3.5-5.0) mmol/L Chloride 103 (101-111) mmol/L Carbon Dioxide 26 (22-32) mmol/L Anion Gap 7 (2-11) mmol/L BUN 6 (6-24) mg/dL Creatinine 0.70 (0.67-1.17) mg/dL Est GFR ( Amer) 143.3 (>60) Est GFR (Non-Af Amer) 118.4 (>60) BUN/Creatinine Ratio 8.6 (8-20) Glucose 114 H (70-100) mg/dL Lactic Acid (0.5-2.0) mmol/L Calcium 9.0 (8.6-10.3) mg/dL Magnesium 1.5 L (1.9-2.7) mg/dL Total Bilirubin 1.00 (0.2-1.0) mg/dL AST 82 H (13-39) U/L ALT 75 H (7-52) U/L Alkaline Phosphatase 61 (34-104) U/L Ammonia 46 (16-53) mcmol/L Total Creatine Kinase 96 (10-223) U/L Troponin I 0.00 (<0.04) ng/mL Total Protein 6.0 L (6.4-8.9) g/dL Albumin 3.8 (3.2-5.2) g/dL Globulin 2.2 (2-4) g/dL Albumin/Globulin Ratio 1.7 (1-3) Folate Pending Urine Color Urine Appearance Urine pH (5-9) Ur Specific [place] (1.010-1.030) Urine Protein (Negative) Urine Ketones (Negative) Urine Blood (Negative) Urine Nitrate (Negative) Urine Bilirubin (Negative) Urine Urobilinogen (Negative) Ur Leukocyte Esterase (Negative) Urine Glucose (Negative) Salicylates < 2.50 (<30) mg/dL Urine Opiates Screen (None Detect) Acetaminophen < 15 mcg/mL Ur Barbiturates Screen (None Detect) Ur Phencyclidine Scrn (None Detect) Ur Amphetamines Screen (None Detect) U Benzodiazepines Scrn (None Detect) Urine Cocaine Screen (None Detect) U Cannabinoids Screen (None Detect) Serum Alcohol < 10 (<10) mg/dL 08/20/18 08/20/18 08/20/18 Range/Units 11:19 11:19 12:29 WBC (3.5-10.8) 10^3/uL RBC (4.18-5.48) 10^6 /uL Hgb (14.0-18.0) g/dL Hct (36-46) % MCV (80-94) fL MCH (27-31) pg MCHC (31-36) g/dL RDW (10.5-15) % Plt Count (150-450) 10^3/uL MPV (7.4-10.4) fL Neut % (Auto) % Lymph % (Auto) % [place] % (Auto) % Eos % (Auto) % Baso % (Auto) % Absolute Neuts (auto) (1.5-7.7) 10^3/ul Absolute Lymphs (auto) (1.0-4.8) 10^3/ul Absolute Monos (auto) (0-0.8) 10^3/ul Absolute Eos (auto) (0-0.6) 10^3/ul Absolute Basos (auto) (0-0.2) 10^3/ul Absolute Nucleated RBC 10^3/ul Nucleated RBC % Hem Pathologist Commnt INR (Anticoag Therapy) 0.82 (0.77-1.02) Sodium (135-145) mmol/L Potassium (3.5-5.0) mmol/L Chloride (101-111) mmol/L Carbon Dioxide (22-32) mmol/L Anion Gap (2-11) mmol/L BUN (6-24) mg/dL Creatinine (0.67-1.17) mg/dL Est GFR ( Amer) (>60) Est GFR (Non-Af Amer) (>60) BUN/Creatinine Ratio (8-20) Glucose (70-100) mg/dL Lactic Acid 0.9 (0.5-2.0) mmol/L Calcium (8.6-10.3) mg/dL Magnesium (1.9-2.7) mg/dL Total Bilirubin (0.2-1.0) mg/dL AST (13-39) U/L ALT (7-52) U/L Alkaline Phosphatase (34-104) U/L Ammonia (16-53) mcmol/L Total Creatine Kinase (10-223) U/L Troponin I (<0.04) ng/mL Total Protein (6.4-8.9) g/dL Albumin (3.2-5.2) g/dL Globulin (2-4) g/dL Albumin/Globulin Ratio (1-3) Folate Urine Color Yellow Urine Appearance Clear Urine pH 7.0 (5-9) Ur Specific [place] 1.010 (1.010-1.030) Urine Protein Negative (Negative) Urine Ketones Negative (Negative) Urine Blood Negative (Negative) Urine Nitrate Negative (Negative) Urine Bilirubin Negative (Negative) Urine Urobilinogen Negative (Negative) Ur Leukocyte Esterase Negative (Negative) Urine Glucose Negative (Negative) Salicylates (<30) mg/dL Urine Opiates Screen (None Detect) Acetaminophen mcg/mL Ur Barbiturates Screen (None Detect) Ur Phencyclidine Scrn (None Detect) Ur Amphetamines Screen (None Detect) U Benzodiazepines Scrn (None Detect) Urine Cocaine Screen (None Detect) U Cannabinoids Screen (None Detect) Serum Alcohol (<10) mg/dL 08/20/18 Range/Units 12:29 WBC (3.5-10.8) 10^3/uL RBC (4.18-5.48) 10^6 /uL Hgb (14.0-18.0) g/dL Hct (36-46) % MCV (80-94) fL MCH (27-31) pg MCHC (31-36) g/dL RDW (10.5-15) % Plt Count (150-450) 10^3/uL MPV (7.4-10.4) fL Neut % (Auto) % Lymph % (Auto) % [place] % (Auto) % Eos % (Auto) % Baso % (Auto) % Absolute Neuts (auto) (1.5-7.7) 10^3/ul Absolute Lymphs (auto) (1.0-4.8) 10^3/ul Absolute Monos (auto) (0-0.8) 10^3/ul Absolute Eos (auto) (0-0.6) 10^3/ul Absolute Basos (auto) (0-0.2) 10^3/ul Absolute Nucleated RBC 10^3/ul Nucleated RBC % Hem Pathologist Commnt INR (Anticoag Therapy) (0.77-1.02) Sodium (135-145) mmol/L Potassium (3.5-5.0) mmol/L Chloride (101-111) mmol/L Carbon Dioxide (22-32) mmol/L Anion Gap (2-11) mmol/L BUN (6-24) mg/dL Creatinine (0.67-1.17) mg/dL Est GFR ( Amer) (>60) Est GFR (Non-Af Amer) (>60) BUN/Creatinine Ratio (8-20) Glucose (70-100) mg/dL Lactic Acid (0.5-2.0) mmol/L Calcium (8.6-10.3) mg/dL Magnesium (1.9-2.7) mg/dL Total Bilirubin (0.2-1.0) mg/dL AST (13-39) U/L ALT (7-52) U/L Alkaline Phosphatase (34-104) U/L Ammonia (16-53) mcmol/L Total Creatine Kinase (10-223) U/L Troponin I (<0.04) ng/mL Total Protein (6.4-8.9) g/dL Albumin (3.2-5.2) g/dL Globulin (2-4) g/dL Albumin/Globulin Ratio (1-3) Folate Urine Color Urine Appearance Urine pH (5-9) Ur Specific [place] (1.010-1.030) Urine Protein (Negative) Urine Ketones (Negative) Urine Blood (Negative) Urine Nitrate (Negative) Urine Bilirubin (Negative) Urine Urobilinogen (Negative) Ur Leukocyte Esterase (Negative) Urine Glucose (Negative) Salicylates (<30) mg/dL Urine Opiates Screen None detected (None Detect) Acetaminophen mcg/mL Ur Barbiturates Screen None detected (None Detect) Ur Phencyclidine Scrn None detected (None Detect) Ur Amphetamines Screen None detected (None Detect) U Benzodiazepines Scrn None detected (None Detect) Urine Cocaine Screen None detected (None Detect) U Cannabinoids Screen None detected (None Detect) Serum Alcohol (<10) mg/dL Assessment/Plan 52 year old with a history of heavy alcohol use and abuse, prior concussion, cerebral and cerebellar atrohpy, HTN, history of hypoglycemia, 1 seizure in the past reportedly related to sudden EtOH w/d, brought to the hospital yesterday with worsening weakness and balance issues, tremulous and hallucinations. Last drink reported by patient at 2 am morning of admission. He typically drinks at least 6 per night. 1. I continue to suspect that he drinks very heavily and is likely in the early stages of w/d. Her magui intermittently confused with some reported hallucinations. He is very tremulous and while his vitals are stable, he is on beta-cameron and scheduled BZD which I would continue. Watch closely over the next 48-72 hours for worsening w/d symptoms. --Continue Thiamine and Folic Acid replacement --Scheduled BZD --Watch for autonomic instability --History of 1 seizure, reportedly when he stopped alcohol suddenly, likely W /D seizure. Continue seizure precautions --Liver enzymes trending down. Ammonia wnl --Neuro checks --Will need outpatient counseling, rehab for continued cessation 2. Gait and balance problems and subjective weakness: On exam, he has full strength. Muscle enzymes are normal and my suspicion or a myopathic process is low. He does have evidence of a peripheral neuropathy on exam. 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 He also has significant cerebral and cerebellar atrophy, progressed from prior exams. Likely related to long-term alcohol use. --When he is stable, I would like MRI to look for other structural problems including stroke, and to better characterize the atrophy --I suspect PN is playing a role as well. --Needs PT/OT --Serial exams to follow gait. I expect some improvement. He has had similar symptoms in the past and with time, fluids and cessation, it appears his gait improved in the past. --History of concussion in the past, I do not think this is playing a major role at this point --Alcohol cessation is critical at this point. 3. AMS: Likely related to alcohol. Will get MRI when stable. 4. Left eye swelling: appears to be a stye. Defer to Primary I will continue to follow along and make further recommendations as necessary. I would like to plan to see him in my clinic in several months when sober, to better evaluate for the possible retirement effects of his chronic alcohol use including cognitive issues.
[2018-08-21 08:48] LABS: CRP High Sensitivity 2.25 mg/L (<2.00)
[2018-08-21 08:58] LABS: Magnesium 1.8 mg/dL (1.9-2.7)
[2018-08-21] MEDS ORDERED: Multivitamins/Minerals TAB PO SCH (09:00)
[2018-08-21] MEDS ORDERED: Folic Acid TAB* 1 MG PO SCH (09:00)
[2018-08-21] MEDS ORDERED: Thiamine TAB* 100 MG TAB PO SCH ×2 (09:00)
--- NOTE | 2018-08-21 13:32 | PN ---
Subjective Date of Service: 08/21/18 Interval History: Patient resting on arrival; opens eyes easily to voice. Is found to be A+O x3, answering questions appropriately. Reports he feels better today. denies hallucinations. Reports tremors. No Abdominal pain. Denies N/V/D. Reports "okay appetite". Family History: Unchanged from Admission Social History: Unchanged from Admission Past Medical History: Unchanged from Admission Objective Active Medications: Acetaminophen (Tylenol Tab*) 650 mg PO Q4H PRN PRN Reason: PAIN Al Hydrox/Mg Hydrox/Simethicone (Maalox Plus*) 30 ml PO Q6H PRN PRN Reason: INDIGESTION Atenolol (Tenormin Tab*) 50 mg PO DAILY [facility] Last Admin: 08/21/18 07:30 Dose: 50 mg Folic Acid (Folvite Tab*) 1 mg PO DAILY [facility] Last Admin: 08/21/18 07:30 Dose: 1 mg Lorazepam (Ativan Inj*) 0 - 3 mg IV PUSH .PER [facility] PROTOCOL [facility]; Protocol Last Admin: 08/21/18 02:30 Dose: 2 mg Lorazepam (Ativan Tab(*)) 2 mg PO Q12H [facility]; Taper Stop: 08/23/18 10:59 Last Admin: 08/21/18 07:30 Dose: 2 mg Magnesium Hydroxide (Milk Of Magnesia Liq*) 30 ml PO Q4H PRN PRN Reason: CONSTIPATION Multivitamins/Minerals (Theragran/Minerals Tab*) 1 tab PO DAILY [facility] Last Admin: 08/21/18 07:30 Dose: 1 tab Thiamine HCl (Vitamin B-1 Tab*) 100 mg PO DAILY [facility] Last Admin: 08/21/18 07:30 Dose: 100 mg Vital Signs - 8 hr 08/21/18 08/21/18 08/21/18 06:14 07:15 07:30 Temperature Pulse Rate 59 Respiratory 18 18 18 Rate Blood Pressure 140/83 (mmHg) O2 Sat by Pulse 100 Oximetry 08/21/18 08/21/18 08/21/18 08:03 09:13 09:35 Temperature 97.6 F 97.6 F Pulse Rate 62 62 Respiratory 16 16 15 Rate Blood Pressure 140/90 140/90 (mmHg) O2 Sat by Pulse 100 100 Oximetry 08/21/18 08/21/18 11:09 12:18 Temperature 97.9 F 97.9 F Pulse Rate 61 61 Respiratory 16 16 Rate Blood Pressure 127/88 127/88 (mmHg) O2 Sat by Pulse 98 98 Oximetry Oxygen Devices in Use Now: None Appearance: A+Ox3 male laying iun bed in NAD, resting - awakes easilty, answers questions approriately Eyes: - - left eye injection, lid is slightly edematouc, crusting noted on upper and lower lash Respiratory: Symmetrical Chest Expansion and Respiratory Effort, Clear to Auscultation Cardiovascular: NL Sounds; No Murmurs; No JVD, RRR, No Edema Abdominal: NL Sounds; No Tenderness; No Distention Lymphatic: No Cervical Adenopathy Extremities: No Edema, No Clubbing, Cyanosis Skin: No Rash or Ulcers, No Nodules or Sclerosis Neurological: Alert and Oriented x 3, NL Sensation, NL Muscle Strength and Tone Lines/Tubes/Other Access: Clean, Dry and Intact Peripheral IV Nutrition: Taking PO's Result Diagrams: 08/21/18 05:26 08/21/18 05:26 Additional Lab and Data: Assess/Plan/Problems-Billing 52 year old with a history of heavy alcohol use and abuse, prior concussion, cerebral and cerebellar atrohpy, HTN, history of hypoglycemia, 1 seizure in the past reportedly related to sudden EtOH w/d, who was brought to the hospital yesterday by his with worsening weakness and balance issues, tremulous and hallucinations. Last drink reported by patient at 2 am morning of admission. He typically drinks at least 6 per night. - Patient Problems (1) Altered mental status Current Visit: Yes Comment: - appreciate neurology consult - suspects AMS is alcohol related. Recommends MRI brain w/o - continue neuro checks (2) Alcohol withdrawal Comment: - stable. Tremors. A+Ox3 on exam. No seizures - continue WAM protocol - ativan scheduled for seizure prophylaxis - monitor for worsening S&S of wd - continue thiamin, folic acid, multivitamin - liver enzymes trending down - Neuro checks - social work consult - does not want him to come home due to 16 yo in house; she is pushing for rehab from hospital. (3) Electrolyte abnormality Comment: - replace magnesium - repeat BMP and Mg in am (4) Conjunctivitis Comment: left eye - start polytrim 1gtt q3h while awake x 7 days (5) Hypertension Comment: - controlled - continue losartan (6) DVT prophylaxis Comment: SCDs (7) Full code status Status and Disposition: OBV.
[2018-08-21] MEDS ORDERED: Magnesium Sulfate 2 GM IV* 2 GM/50 ML BAG IVPB ONE (13:33)
[2018-08-21] MEDS: Polymyx/Trimethoprim OPTH* 10 ML BTL LEFT EYE SCH ×4 (14:56→23:05)
[2018-08-21 17:54] LABS: Erythrocyte Sed Rate 4 mm/Hr (0-20)
[2018-08-22] MEDS: Polymyx/Trimethoprim OPTH* 10 ML BTL LEFT EYE SCH ×8 (02:48→22:24)
[2018-08-22 05:51] LABS: ABS Basophils 0 10^3/ul (0-0.2); ABS Eosinophils 0.2 10^3/ul (0-0.6); ABS Lymphocytes 1.2 10^3/ul (1.0-4.8); ABS Monocytes 1.3 10^3/ul (0-0.8); ABS Nucleated RBC 0 10^3/ul; Eosinophil % 4.5 %; Hematocrit 41 % (36-46); Hemoglobin 14.1 g/dL (14.0-18.0); Lymphocyte % 26.2 %; Mean Corpuscular HGB Conc 34 g/dL (31-36); Mean Corpuscular Hemoglobin 35 pg (27-31); Mean Corpuscular Volume 102 fL (80-94); Mean Platelet Volume 8.7 fL (7.4-10.4); Nucleated Red Blood Cells % 0.1; Platelet Count 123 10^3/uL (150-450); Red Blood Count 4.05 10^6 /uL (4.18-5.48); Red Cell Distribution Width 13 % (10.5-15); White Blood Count 4.7 10^3/uL (3.5-10.8)
[2018-08-22 06:14] LABS: Calcium 8.7 mg/dL (8.6-10.3); EGFR African American 126.5 (>60); EGFR Non-African American 104.5 (>60); Magnesium 2.3 mg/dL (1.9-2.7); Potassium 3.7 mmol/L (3.5-5.0)
--- NOTE | 2018-08-22 08:24 | PN ---
Subjective Date of Service: 08/22/18 Length of Stay: 2 Days Interval History: Spoke with his nurse this am. No major issues overnight. Stable per [facility] protocol. He notes walking up and down the curry yesterday with assist. He has been getting to his bedside commode without difficult but needs assists for safety. Tremors are better. He notes no hallucinations or other issues overnight. Feels better. MRI: No evidence of acute issue, no evidence of stroke. Bilateral mastoid effusions Family History: Unchanged from Admission Social History: Unchanged from Admission Past Medical History: Unchanged from Admission Objective Active Medications: Acetaminophen (Tylenol Tab*) 650 mg PO Q4H PRN PRN Reason: PAIN Al Hydrox/Mg Hydrox/Simethicone (Maalox Plus*) 30 ml PO Q6H PRN PRN Reason: INDIGESTION Atenolol (Tenormin Tab*) 50 mg PO DAILY [facility]S [facility]CLUDE 234 BEDS AT THE [facility] Last Admin: 08/21/18 07:30 Dose: 50 mg Folic Acid (Folvite Tab*) 1 mg PO DAILY COUNTS INCLUDE 234 BEDS AT THE [facility] Last Admin: 08/21/18 07:30 Dose: 1 mg Lorazepam (Ativan Inj*) 0 - 3 mg IV PUSH .PER [facility] PROTOCOL COUNTS INCLUDE 234 BEDS AT THE [facility]; Protocol Last Admin: 08/21/18 02:30 Dose: 2 mg Lorazepam (Ativan Tab(*)) 2 mg PO Q12H COUNTS INCLUDE 234 BEDS AT THE [facility]; Taper Stop: 08/23/18 10:59 Last Admin: 08/21/18 19:32 Dose: 2 mg Magnesium Hydroxide (Milk Of Magnesia Liq*) 30 ml PO Q4H PRN PRN Reason: CONSTIPATION Multivitamins/Minerals (Theragran/Minerals Tab*) 1 tab PO DAILY COUNTS INCLUDE 234 BEDS AT THE [facility] Last Admin: 08/21/18 07:30 Dose: 1 tab Pneumococcal Polyvalent Vaccine (Pneumococcal Vac 23-Polyvalent*) 0.5 ml IM .ONCE ONE Stop: 08/22/18 09:01 Polymyxin/Trimethoprim Sulfate (Polytrim Ophth*) 1 drop LEFT EYE Q3H COUNTS INCLUDE 234 BEDS AT THE [facility] Stop: 08/28/18 13:59 Last Admin: 08/22/18 05:04 Dose: 1 drop Thiamine HCl (Vitamin B-1 Tab*) 100 mg PO DAILY COUNTS INCLUDE 234 BEDS AT THE [facility] Last Admin: 08/21/18 07:30 Dose: 100 mg Vital Signs 08/21/18 08/21/18 08/21/18 09:13 09:35 11:09 Temperature 97.6 F 97.9 F Pulse Rate 62 61 Respiratory 16 15 16 Rate Blood Pressure 140/90 127/88 (mmHg) O2 Sat by Pulse 100 98 Oximetry 08/21/18 08/21/18 08/21/18 12:18 14:20 16:04 Temperature 97.9 F 97.5 F 98.1 F Pulse Rate 61 66 92 Respiratory 16 16 18 Rate Blood Pressure 127/88 132/86 138/107 (mmHg) O2 Sat by Pulse 98 99 99 Oximetry 08/21/18 08/21/18 08/21/18 16:57 18:47 18:50 Temperature 98.1 F 98.0 F 98.0 F Pulse Rate 92 69 Respiratory 16 Rate Blood Pressure 138/107 121/79 121/79 (mmHg) O2 Sat by Pulse 99 99 99 Oximetry 08/21/18 08/21/18 08/21/18 19:32 20:00 21:05 Temperature 98.0 F Pulse Rate 76 Respiratory 18 17 16 Rate Blood Pressure 117/86 (mmHg) O2 Sat by Pulse 97 Oximetry 08/21/18 08/21/18 08/22/18 23:05 23:51 01:54 Temperature 98.0 F 97.7 F Pulse Rate 67 82 Respiratory 16 17 Rate Blood Pressure 141/89 140/90 (mmHg) O2 Sat by Pulse 100 Oximetry 08/22/18 08/22/18 08/22/18 01:57 06:00 06:13 Temperature 98.2 F 98.3 F 98.3 F Pulse Rate 72 93 93 Respiratory 16 16 16 Rate Blood Pressure 133/86 126/78 126/78 (mmHg) O2 Sat by Pulse 100 100 100 Oximetry 08/22/18 07:55 Temperature Pulse Rate Respiratory 16 Rate Blood Pressure (mmHg) O2 Sat by Pulse Oximetry Intake and Output Last 24 Hours 08/20/18 08/21/18 08/22/18 08/23/18 06:59 06:59 06:59 06:59 Intake Total 0 978 Output Total 750 Balance 0 228 Weight 155 lb Intake: IV Fluids 20 IVPB 58 Oral 0 900 Output: Urine 750 Oxygen Devices in Use Now: None Neurology Exam: General: Well nourished, well developed, no acute distress HEENT: Normocephalic/atraumatic, sclera anicteric, redness and crusting of the left eye Neck: Supple Chest: Clear to auscultation bilaterally Cardiovascular: Regular rate and rhythm without murmurs, rubs, gallops Abdomen: Soft, non-tender/non-distended Extremities: No clubbing, cyanosis, or edema Skin warm and dry Neurological Findings: Awake, sitting up in bed, oriented X 3 Speech: fluent without dysarthria Cranial Nerve: PERRL, EOM intact, VFF, no nystagmus, some drooping of his left eyelid with swelling (improved) otherwise face symmetric bilaterally, facial sensation intact, hearing intact to finger rub bilaterally, palate elevates symmetrically, tongue midline Motor: Strength is normal, no focal deficits Sensation: Subjective tingling in the feet, intermittent, loss of vibration in the toes, unchanged Tremulousness is improved. He does have some finger to nose tremor. Gait: Able to stand on his own, ambulates with some caution. Occasional became imbalance but overall much improved. Minimal sway with eyes open and closed Result Diagrams: 08/22/18 05:07 08/22/18 05:07 Additional Lab and Data: Diagnostic Imaging: MRI: No evidence of acute issue, no evidence of stroke. Bilateral mastoid effusions Assessment/Plan 52 year old with a history of heavy alcohol use and abuse, prior concussion, cerebral and cerebellar atrohpy, HTN, history of hypoglycemia, 1 seizure in the past reportedly related to sudden EtOH w/d, brought to the hospital yesterday with worsening weakness and balance issues, tremulous and hallucinations. Last drink reported by patient at 2 am morning of admission. He typically drinks at least 6 per night. 1. I had a long talk with his yesterday. She confirms very heavy alcohol use for at least a year. She is unable to care for him at home and is very worried about her own health. They have a 16 year old son at home. He drinks at least several beers a day and multiple shots of liquor. --Continue Thiamine and Folic Acid replacement --Scheduled BZD--this can be tapered at tolerated per [facility] protocol --Watch for autonomic instability --History of 1 seizure, reportedly when he stopped alcohol suddenly, likely W /D seizure. Continue seizure precautions --Liver enzymes trending down. Ammonia wnl --Neuro checks --ANA is working with the family and patient to find a reasonable rehab option 2. Gait and balance problems and subjective weakness: This is improving. He was able to stand and ambulate today without as much difficulty although he is off balance at times and remains a fall risk. --MRI shows no evidence of acute stroke. Noted atrophy --Evidence of PN on exam likely contributing to his balance issues. --Continue PT. Will need outpatient PT as well. --Overall, he is slowly improving. More steady today than yesterday and ambulating more. --Alcohol cessation is critical at this point. 3. AMS: Improved, alcohol related. 4. Left eye swelling: Stye. Treatment per primary I am gong to sign off for now. The patient is improving. He will need outpatient rehab for his alcohol abuse and out patient therapy for his gait instability. I told him in no uncertain terms that if he continues to drink he WILL end up in a wheelchair, will likely develop dementia and is at a high risk of early . He verbalized understanding. I recommended he follow through with rehab and make every effort to stay sober. I remain available for any further issues or concerns.
[2018-08-22] MEDS ORDERED: Pneumococcal *Vac Polyvalent 0.5 ML VIAL IM ONE (09:00)
[2018-08-22] MEDS: LORazepam TAB(*) 1 MG PO SCH ×2 (09:24→19:12)
[2018-08-22] MEDS: Atenolol TAB* 50 MG PO SCH (09:42)
[2018-08-22] MEDS: Folic Acid TAB* 1 MG PO SCH (09:43)
[2018-08-22] MEDS: Multivitamins/Minerals TAB PO SCH (09:43)
[2018-08-22] MEDS: Thiamine TAB* 100 MG TAB PO SCH (09:43)
[2018-08-22 13:42] LABS: Aldolase 7.8 U/L (<7.7)
--- NOTE | 2018-08-22 14:31 | PN ---
Subjective Date of Service: 08/22/18 Interval History: Feeling good today, no complaints. Denies nausea, tremors, hallucinations, cravings,anxiety. He worked with PT this morning and has gone for a few walks and felt good. I explained the plan for STR and he is okay with this plan. Family History: Unchanged from Admission Social History: Unchanged from Admission Past Medical History: Unchanged from Admission Objective Active Medications: Acetaminophen (Tylenol Tab*) 650 mg PO Q4H PRN PRN Reason: PAIN Al Hydrox/Mg Hydrox/Simethicone (Maalox Plus*) 30 ml PO Q6H PRN PRN Reason: INDIGESTION Atenolol (Tenormin Tab*) 50 mg PO DAILY [facility] Last Admin: 08/22/18 09:42 Dose: 50 mg Folic Acid (Folvite Tab*) 1 mg PO DAILY [facility] Last Admin: 08/22/18 09:43 Dose: 1 mg Lorazepam (Ativan Inj*) 0 - 3 mg IV PUSH .PER [facility] PROTOCOL [facility]; Protocol Last Admin: 08/21/18 02:30 Dose: 2 mg Lorazepam (Ativan Tab(*)) 2 mg PO Q12H [facility]; Taper Stop: 08/23/18 10:59 Last Admin: 08/22/18 09:24 Dose: Not Given Magnesium Hydroxide (Milk Of Magnchyna Liq*) 30 ml PO Q4H PRN PRN Reason: CONSTIPATION Multivitamins/Minerals (Theragran/Minerals Tab*) 1 tab PO DAILY [facility] Last Admin: 08/22/18 09:43 Dose: 1 tab Polymyxin/Trimethoprim Sulfate (Polytrim Ophth*) 1 drop LEFT EYE Q3H [facility] Stop: 08/28/18 13:59 Last Admin: 08/22/18 11:13 Dose: 1 drop Thiamine HCl (Vitamin B-1 Tab*) 100 mg PO DAILY [facility] Last Admin: 08/22/18 09:43 Dose: 100 mg Vital Signs - 8 hr 08/22/18 08/22/18 08/22/18 07:55 07:57 09:53 Temperature 98.1 F 98.6 F Pulse Rate 78 86 Respiratory 16 20 16 Rate Blood Pressure 129/77 108/76 (mmHg) O2 Sat by Pulse 100 99 Oximetry 08/22/18 08/22/18 12:07 14:08 Temperature 98.1 F 98.3 F Pulse Rate 65 72 Respiratory 18 12 Rate Blood Pressure 109/78 118/82 (mmHg) O2 Sat by Pulse 99 100 Oximetry Oxygen Devices in Use Now: None Appearance: alert, sitting up in chair, well appearing, calm Eyes: No Scleral Icterus Ears/Nose/Mouth/Throat: NL Teeth, Lips, Gums Neck: NL Appearance and Movements; NL JVP, - - + tongue tremors Respiratory: Symmetrical Chest Expansion and Respiratory Effort Cardiovascular: NL Sounds; No Murmurs; No JVD Abdominal: NL Sounds; No Tenderness; No Distention Lymphatic: No Cervical Adenopathy Extremities: No Edema Neurological: Alert and Oriented x 3, - - oriented, calm, no asterixis Result Diagrams: 08/22/18 05:07 08/22/18 05:07 Additional Lab and Data: Diagnostic Imaging: MRI: No evidence of acute issue, no evidence of stroke. Bilateral mastoid effusions Assess/Plan/Problems-Billing 52 year old with a history of heavy alcohol use and abuse, prior concussion, cerebral and cerebellar atrohpy, HTN, brought to hospital by his for instability, weakness. - Patient Problems (1) Altered mental status Current Visit: Yes Status: Acute Code(s): R41.82 - ALTERED MENTAL STATUS, UNSPECIFIED SNOMED Code(s): 072526080 Comment: improved like related to etoh withdrawal; also with marked piercing specialist changes on ct head reflective of prolonged heavy etoh abuse (2) Alcohol withdrawal Current Visit: Yes Status: Acute Code(s): F10.239 - ALCOHOL DEPENDENCE WITH WITHDRAWAL, UNSPECIFIED SNOMED Code(s): 850810602 Comment: stable. No seizures continue [facility] protocol - ativan taper scheduled for seizure prophylaxis monitor for worsening S&S of wd continue thiamin3, folic acid, multivitamin - social work consult - does not want him to come home due to 16 yo in house; she is pushing for rehab from hospital. (3) Hypertension Current Visit: Yes Status: Acute Code(s): I10 - ESSENTIAL (PRIMARY) HYPERTENSION SNOMED Code(s): 70034165 Comment: continue losartan Status and Disposition: awaiting STR placement. on ativan taper, but can complete this at STR
[2018-08-23] MEDS: Polymyx/Trimethoprim OPTH* 10 ML BTL LEFT EYE SCH ×7 (02:39→20:48)
[2018-08-23] MEDS: Folic Acid TAB* 1 MG PO SCH (08:17)
[2018-08-23] MEDS: LORazepam TAB(*) 1 MG PO SCH (08:17)
[2018-08-23] MEDS: Thiamine TAB* 100 MG TAB PO SCH (08:17)
[2018-08-23] MEDS: Atenolol TAB* 50 MG PO SCH (08:17)
[2018-08-23] MEDS: Multivitamins/Minerals TAB PO SCH (08:17)
[2018-08-23 10:55] LABS: Methylmalonic Acid 0.1 nmol/mL (<=0.40)
--- NOTE | 2018-08-23 14:48 | PN ---
Subjective Date of Service: 08/23/18 Interval History: No c/o. Family History: Unchanged from Admission Social History: Unchanged from Admission Past Medical History: Unchanged from Admission Objective Active Medications: Acetaminophen (Tylenol Tab*) 650 mg PO Q4H PRN PRN Reason: PAIN Al Hydrox/Mg Hydrox/Simethicone (Maalox Plus*) 30 ml PO Q6H PRN PRN Reason: INDIGESTION Atenolol (Tenormin Tab*) 50 mg PO DAILY [facility] Last Admin: 08/23/18 08:17 Dose: 50 mg Folic Acid (Folvite Tab*) 1 mg PO DAILY [facility] Last Admin: 08/23/18 08:17 Dose: 1 mg Lorazepam (Ativan Inj*) 0 - 3 mg IV PUSH .PER [facility] PROTOCOL [facility]; Protocol Last Admin: 08/21/18 02:30 Dose: 2 mg Magnesium Hydroxide (Milk Of Magnesia Liq*) 30 ml PO Q4H PRN PRN Reason: CONSTIPATION Multivitamins/Minerals (Theragran/Minerals Tab*) 1 tab PO DAILY [facility] Last Admin: 08/23/18 08:17 Dose: 1 tab Polymyxin/Trimethoprim Sulfate (Polytrim Ophth*) 1 drop LEFT EYE Q3H [facility] Stop: 08/28/18 13:59 Last Admin: 08/23/18 13:55 Dose: 1 drop Thiamine HCl (Vitamin B-1 Tab*) 100 mg PO DAILY [facility] Last Admin: 08/23/18 08:17 Dose: 100 mg Vital Signs - 8 hr 08/23/18 08/23/18 08/23/18 07:06 07:12 07:29 Temperature 97.8 F 98.2 F Pulse Rate 92 76 Respiratory 18 18 18 Rate Blood Pressure 126/62 118/76 (mmHg) O2 Sat by Pulse 99 100 Oximetry 08/23/18 08/23/18 08/23/18 08:17 08:57 10:13 Temperature 98.4 F Pulse Rate 83 Respiratory 16 18 16 Rate Blood Pressure 121/79 (mmHg) O2 Sat by Pulse 99 Oximetry 08/23/18 08/23/18 11:03 12:58 Temperature 98.0 F 98.3 F Pulse Rate 82 79 Respiratory 16 16 Rate Blood Pressure 125/79 119/71 (mmHg) O2 Sat by Pulse 100 100 Oximetry Oxygen Devices in Use Now: None Appearance: Alert, in a chair. In good spirits. Looks comfortable Respiratory: Symmetrical Chest Expansion and Respiratory Effort, Clear to Auscultation, Clear to Percussion Cardiovascular: NL Sounds; No Murmurs; No JVD, RRR, No Edema, - Extremities: No Edema, No Clubbing, Cyanosis, - Skin: No Rash or Ulcers, No Nodules or Sclerosis, - Neurological: Alert and Oriented x 3, NL Sensation Result Diagrams: 08/22/18 05:07 08/22/18 05:07 Additional Lab and Data: Diagnostic Imaging: MRI: No evidence of acute issue, no evidence of stroke. Bilateral mastoid effusions Assess/Plan/Problems-Billing 52 year old with a history of heavy alcohol use and abuse, prior concussion, cerebral and cerebellar atrohpy, HTN, brought to hospital by his for instability, weakness. - Patient Problems (1) Alcohol withdrawal Current Visit: Yes Status: Acute Code(s): F10.239 - ALCOHOL DEPENDENCE WITH WITHDRAWAL, UNSPECIFIED SNOMED Code(s): 144502564 Comment: stable. Not clear if he has had a seizure this episode. continue [facility] protocol continue thiamine, folic acid, multivitamin social work consult - does not want him to come home due to 16 yo in house ; she is pushing for rehab from hospital. Status and Disposition: awaiting STR placement. on ativan taper, but can complete this at STR
[2018-08-24] MEDS: Polymyx/Trimethoprim OPTH* 10 ML BTL LEFT EYE SCH ×9 (00:24→23:56)
[2018-08-24] MEDS: Atenolol TAB* 50 MG PO SCH (08:38)
[2018-08-24] MEDS: Thiamine TAB* 100 MG TAB PO SCH (08:38)
[2018-08-24] MEDS: Folic Acid TAB* 1 MG PO SCH (08:38)
[2018-08-24] MEDS: Multivitamins/Minerals TAB PO SCH (08:38)
[2018-08-24] MEDS ORDERED: chlordiazePOXIDE CAP* 25 MG PO PRN (12:22)
--- NOTE | 2018-08-24 12:32 | PN ---
Subjective Date of Service: 08/24/18 Interval History: No c/o. Family History: Unchanged from Admission Social History: Unchanged from Admission Past Medical History: Unchanged from Admission Objective Active Medications: Acetaminophen (Tylenol Tab*) 650 mg PO Q4H PRN PRN Reason: PAIN Al Hydrox/Mg Hydrox/Simethicone (Maalox Plus*) 30 ml PO Q6H PRN PRN Reason: INDIGESTION Atenolol (Tenormin Tab*) 50 mg PO DAILY [facility] Last Admin: 08/24/18 08:38 Dose: 50 mg Chlordiazepoxide (Librium Cap*) 25 mg PO BEDTIME [facility] Chlordiazepoxide (Librium Cap*) 25 mg PO Q4H PRN PRN Reason: ANXIETY Folic Acid (Folvite Tab*) 1 mg PO DAILY [facility] Last Admin: 08/24/18 08:38 Dose: 1 mg Magnesium Hydroxide (Milk Of Magnesia Liq*) 30 ml PO Q4H PRN PRN Reason: CONSTIPATION Multivitamins/Minerals (Theragran/Minerals Tab*) 1 tab PO DAILY [facility] Last Admin: 08/24/18 08:38 Dose: 1 tab Polymyxin/Trimethoprim Sulfate (Polytrim Ophth*) 1 drop LEFT EYE Q3H [facility] Stop: 08/28/18 13:59 Last Admin: 08/24/18 11:52 Dose: 1 drop Thiamine HCl (Vitamin B-1 Tab*) 100 mg PO DAILY [facility] Last Admin: 08/24/18 08:38 Dose: 100 mg Vital Signs - 8 hr 08/24/18 08/24/18 08/24/18 07:01 10:28 11:10 Temperature 98.3 F 98.6 F Pulse Rate 72 72 Respiratory 20 16 16 Rate Blood Pressure 111/76 105/72 (mmHg) O2 Sat by Pulse 98 99 Oximetry Oxygen Devices in Use Now: None Appearance: Alert, in a chair. Neutral affect. Looks comfortable. Extremities: No Edema, No Clubbing, Cyanosis, - Skin: No Rash or Ulcers, No Nodules or Sclerosis, - Neurological: Alert and Oriented x 3, NL Sensation Result Diagrams: 08/22/18 05:07 08/22/18 05:07 Additional Lab and Data: Diagnostic Imaging: MRI: No evidence of acute issue, no evidence of stroke. Bilateral mastoid effusions Assess/Plan/Problems-Billing 52 year old with a history of heavy alcohol use and abuse, prior concussion, cerebral and cerebellar atrohpy, HTN, brought to hospital by his for instability, weakness. - Patient Problems (1) Alcohol withdrawal Current Visit: Yes Status: Acute Code(s): F10.239 - ALCOHOL DEPENDENCE WITH WITHDRAWAL, UNSPECIFIED SNOMED Code(s): 012365446 Comment: stable. Not clear if he has had a seizure this episode. Stop [facility] protocol,no meds on JUL for past 36 hrs. Chlordiazepoxide 25 mg hs and q4 hr PRN until discharge 08/27. continue thiamine, folic acid, multivitamin Accepted at [facility] for 08/27. (2) Hypertension Current Visit: Yes Status: Acute Code(s): I10 - ESSENTIAL (PRIMARY) HYPERTENSION SNOMED Code(s): 62032297 Comment: continue atenolol Status and Disposition: awaiting STR placement. on ativan taper, but can complete this at STR
[2018-08-24] MEDS: chlordiazePOXIDE CAP* 25 MG PO SCH (20:14)
[2018-08-25] MEDS: Polymyx/Trimethoprim OPTH* 10 ML BTL LEFT EYE SCH ×8 (02:09→23:13)
[2018-08-25] MEDS: Atenolol TAB* 50 MG PO SCH (08:56)
[2018-08-25] MEDS: Thiamine TAB* 100 MG TAB PO SCH (08:56)
[2018-08-25] MEDS: Folic Acid TAB* 1 MG PO SCH (08:56)
[2018-08-25] MEDS: Multivitamins/Minerals TAB PO SCH (08:56)
--- NOTE | 2018-08-25 11:03 | PN ---
Subjective Date of Service: 08/25/18 Interval History: Had trouble getting back to sleep at 3:30 AM today. No other c/o. Family History: Unchanged from Admission Social History: Unchanged from Admission Past Medical History: Unchanged from Admission Objective Active Medications: Acetaminophen (Tylenol Tab*) 650 mg PO Q4H PRN PRN Reason: PAIN Al Hydrox/Mg Hydrox/Simethicone (Maalox Plus*) 30 ml PO Q6H PRN PRN Reason: INDIGESTION Atenolol (Tenormin Tab*) 50 mg PO DAILY [facility] Last Admin: 08/25/18 08:56 Dose: 50 mg Chlordiazepoxide (Librium Cap*) 25 mg PO BEDTIME [facility] Last Admin: 08/24/18 20:14 Dose: 25 mg Chlordiazepoxide (Librium Cap*) 25 mg PO Q4H PRN PRN Reason: ANXIETY Folic Acid (Folvite Tab*) 1 mg PO DAILY [facility] Last Admin: 08/25/18 08:56 Dose: 1 mg Magnesium Hydroxide (Milk Of Magnchyna Liq*) 30 ml PO Q4H PRN PRN Reason: CONSTIPATION Multivitamins/Minerals (Theragran/Minerals Tab*) 1 tab PO DAILY [facility] Last Admin: 08/25/18 08:56 Dose: 1 tab Polymyxin/Trimethoprim Sulfate (Polytrim Ophth*) 1 drop LEFT EYE Q3H [facility] Stop: 08/28/18 13:59 Last Admin: 08/25/18 08:57 Dose: 1 drop Thiamine HCl (Vitamin B-1 Tab*) 100 mg PO DAILY [facility] Last Admin: 08/25/18 08:56 Dose: 100 mg Vital Signs - 8 hr 08/25/18 07:59 Temperature 98.1 F Pulse Rate 76 Respiratory 17 Rate Blood Pressure 111/78 (mmHg) O2 Sat by Pulse 100 Oximetry Oxygen Devices in Use Now: None Appearance: Alert, sitting on the edge of his bed, in good spirits. Looks comfortable. Eyes: No Scleral Icterus Extremities: No Edema, No Clubbing, Cyanosis, - Skin: No Rash or Ulcers, No Nodules or Sclerosis, - Neurological: Alert and Oriented x 3, NL Sensation Result Diagrams: 08/22/18 05:07 08/22/18 05:07 Additional Lab and Data: Diagnostic Imaging: MRI: No evidence of acute issue, no evidence of stroke. Bilateral mastoid effusions Assess/Plan/Problems-Billing 52 year old with a history of heavy alcohol use and abuse, prior concussion, cerebral and cerebellar atrohpy, HTN, brought to hospital by his for instability, weakness. - Patient Problems (1) Alcohol withdrawal Current Visit: Yes Status: Acute Code(s): F10.239 - ALCOHOL DEPENDENCE WITH WITHDRAWAL, UNSPECIFIED SNOMED Code(s): 404048174 Comment: stable. Not clear if he has had a seizure this episode. Continue chlordiazepoxide 25 mg hs and q4 hr PRN until discharge 08/27. continue thiamine, folic acid, multivitamin Accepted at [facility] for 08/27. (2) Hypertension Current Visit: Yes Status: Acute Code(s): I10 - ESSENTIAL (PRIMARY) HYPERTENSION SNOMED Code(s): 63327127 Comment: continue atenolol Status and Disposition: awaiting STR placement. on ativan taper, but can complete this at STR
[2018-08-25] MEDS: chlordiazePOXIDE CAP* 25 MG PO SCH (20:15)
[2018-08-26] MEDS: Polymyx/Trimethoprim OPTH* 10 ML BTL LEFT EYE SCH ×4 (03:18→11:33)
[2018-08-26] MEDS: Thiamine TAB* 100 MG TAB PO SCH (07:56)
[2018-08-26] MEDS: Folic Acid TAB* 1 MG PO SCH (07:56)
[2018-08-26] MEDS: Atenolol TAB* 50 MG PO SCH (07:56)
[2018-08-26] MEDS: Multivitamins/Minerals TAB PO SCH (07:56)
--- NOTE | 2018-08-26 12:47 | PN ---
Subjective Date of Service: 08/26/18 Interval History: No more eye symptoms or discharge. He had L eye swelling/discharge per patient. Still some sleep disturbance, as expected. Family History: Unchanged from Admission Social History: Unchanged from Admission Past Medical History: Unchanged from Admission Objective Active Medications: Acetaminophen (Tylenol Tab*) 650 mg PO Q4H PRN PRN Reason: PAIN Al Hydrox/Mg Hydrox/Simethicone (Maalox Plus*) 30 ml PO Q6H PRN PRN Reason: INDIGESTION Atenolol (Tenormin Tab*) [address] [facility] Last Admin: 08/26/18 07:56 Dose: 50 mg Chlordiazepoxide (Librium Cap*) [address] [facility] Last Admin: 08/25/18 20:15 Dose: 25 mg Chlordiazepoxide (Librium Cap*) 25 mg PO Q4H PRN PRN Reason: ANXIETY Folic Acid (Folvite Tab*) [address] [facility] Last Admin: 08/26/18 07:56 Dose: 1 mg Magnesium Hydroxide (Milk Of MagnPxRadia Liq*) 30 ml PO Q4H PRN PRN Reason: CONSTIPATION Multivitamins/Minerals (Theragran/Minerals Tab*) [address] [facility] Last Admin: 08/26/18 07:56 Dose: 1 tab Thiamine HCl (Vitamin B-1 Tab*) [address] [facility] Last Admin: 08/26/18 07:56 Dose: 100 mg Vital Signs - 8 hr 08/26/18 08/26/18 07:50 09:48 Temperature 98.3 F Pulse Rate 70 Respiratory 16 16 Rate Blood Pressure 115/71 (mmHg) O2 Sat by Pulse 99 Oximetry Oxygen Devices in Use Now: None Appearance: Alert, in a chair. Neutral affect. Looks comfortable. Eyes: No Scleral Icterus, - - no injection or discharge either eye. Extremities: No Edema, No Clubbing, Cyanosis, - Skin: No Rash or Ulcers, No Nodules or Sclerosis, - Neurological: Alert and Oriented x 3, NL Sensation Result Diagrams: 08/22/18 05:07 08/22/18 05:07 Additional Lab and Data: Diagnostic Imaging: MRI: No evidence of acute issue, no evidence of stroke. Bilateral mastoid effusions Assess/Plan/Problems-Billing 52 year old with a history of heavy alcohol use and abuse, prior concussion, cerebral and cerebellar atrohpy, HTN, brought to hospital by his for instability, weakness. - Patient Problems (1) Alcohol withdrawal Current Visit: Yes Status: Acute Code(s): F10.239 - ALCOHOL DEPENDENCE WITH WITHDRAWAL, UNSPECIFIED SNOMED Code(s): 254656312 Comment: stable. Not clear if he has had a seizure this episode. Continue chlordiazepoxide 25 mg hs and q4 hr PRN until discharge 08/27. continue thiamine, folic acid, multivitamin Accepted at [facility] for 08/27. (2) Hypertension Current Visit: Yes Status: Acute Code(s): I10 - ESSENTIAL (PRIMARY) HYPERTENSION SNOMED Code(s): 02044781 Comment: continue atenolol Status and Disposition: awaiting STR placement. on ativan taper, but can complete this at STR
--- NOTE | 2018-08-26 12:59 | PN ---
Progress Note - Progress Note Date of Service: 08/26/18 Note: Time spent on discharge including exam of patient, discussion with patient, nurse, CM, review of EMR and preparation of discharge documents is 40 minutes.
--- NOTE | 2018-08-26 14:43 | DS ---
CC: Dr. Sinclair * DISCHARGE SUMMARY: DATE OF ADMISSION: DATE OF DISCHARGE: 08/27/18 This is being dictated in an advance. HISTORY OF PRESENT ILLNESS: This 52-year-old man presented with a history of hallucinations for 2 days, his noticed this. They were quite prominent hallucinations. The primary care provider directed the patient and his to the emergency room. The patient was unsure when his last drink was. I believe the patient's reports of his drinking were much underestimated. The patient has a history of a withdrawal seizure at [facility] a year ago. The patient was given lorazepam, multivitamins, folic acid, thiamin. His blood pressure was controlled with his usual dose of atenolol 50 mg daily. He was treated for conjunctivitis as well. This was resolved completely on the antibiotic. A pharma preparation has been discontinued. I switched the patient to chlordiazepoxide 1 dose at bedtime each night. He will get that tonight, 25 mg in the night before discharge. It should slowly taper itself as it has a long half life, he had some sleep disturbance, which is expected in alcohol withdrawal. Otherwise, he seemed totally at baseline. FINAL DIAGNOSES: 1. Chronic alcoholism and alcohol withdrawal syndrome. 2. Hypertension. 3. Conjunctivitis, resolved. DISCHARGE MEDICATIONS: Atenolol 50 mg daily. DISCHARGE CONDITION: Stable. DISCHARGE DISPOSITION: Transported directly to [facility] [place]. I note the patient states he has a month and a week supply of atenolol and should bring this with him to [facility]. [id number]/[facility] #: [id number]
[2018-08-26] MEDS: chlordiazePOXIDE CAP* 25 MG PO SCH (21:10)
[2018-08-27] MEDS: Folic Acid TAB* 1 MG PO SCH (10:36)
[2018-08-27] MEDS: Multivitamins/Minerals TAB PO SCH (10:36)
[2018-08-27] MEDS: Atenolol TAB* 50 MG PO SCH (10:36)
[2018-08-27] MEDS: Thiamine TAB* 100 MG TAB PO SCH (10:36)
[2018-08-27 11:41] VITALS: BP 104/74
== END 2018-08-27 12:00 | DRG 775 ==
LOC: ED 10:11 → MEDTELE 14:38 → OBSVTOIN 08-21 14:36 → MED 08-22 22:28
PROVIDERS: ADMIT Internal Medicine; ATTEND Internal Medicine
DX: F10.239 Alcohol dependence with withdrawal, unspecified (principal); E51.2 Wernicke's encephalopathy; I10 Essential (primary) hypertension; G31.9 Degenerative disease of nervous system, unspecified; M54.9 Dorsalgia, unspecified; R29.6 Repeated falls; E87.6 Hypokalemia; H10.9 Unspecified conjunctivitis; Y90.9 Presence of alcohol in blood, level not specified; Z82.49 Family history of ischemic heart disease and other diseases of the circulatory system; Z56.0 Unemployment, unspecified; Z81.1 Family history of alcohol abuse and dependence; Z88.0 Allergy status to penicillin
CPT/HCPCS: 36415; 70450; 70551; 80048; 80053; 80307; 80320; 80329; 81003; 82085; 82140; 82550; 82607; 82746; 83605; 83735; 83874; 83921; 84443; 84484; 85025; 85060; 85610; 85652; 86038; 86141; 90732; 93005; 99285; A9270-GY; G0480; G8978-GP-CK; G8979-GP-CI; J2060; J3411; J3475; J3480